=== PATIENT | female | born 1960 | race American Indian/Alaskan Native ===

== ENCOUNTER 2018-04-10 19:30 | Emergency (ER) | payer MEDICARE ==
[2018-04-10] MEDS ORDERED: NACL 0.9% 1000 ML 1,000 ML IV ONE (19:49)
[2018-04-10 20:04] LABS: Basophils # (Auto) 0.1 K/mm3 (0.0-0.1); Eosinophils # (Auto) 0.1 K/mm3 (0.0-0.4); Eosinophils % (Auto) 1.1 % (0.0-4.3); Hematocrit 37.8 % (30.3-42.9); Hemoglobin 13.6 gm/dl (10.1-14.3); Lymphocytes # (Auto) 1.6 K/mm3 (1.2-5.4); Lymphocytes % (Auto) 26.7 % (13.4-35.0); Mean Corpuscular HGB Conc 36 % (30-34); Mean Corpuscular Hemoglobin 35 pg (28-32); Mean Corpuscular Volume 96 fl (79-97); Monocytes # (Auto) 0.6 K/mm3 (0.0-0.8); Platelet Count 160 K/mm3 (140-440); Red Blood Count 3.93 M/mm3 (3.65-5.03); Red Cell Distribution Width 16.1 % (13.2-15.2)
[2018-04-10 20:20] LABS: Calcium 10.5 mg/dL (8.4-10.2)
--- NOTE | 2018-04-11 00:30 | Cat Scan Report ---
FINAL REPORT PROCEDURE: CT ABDOMEN PELVIS WO CON TECHNIQUE: Computerized axial tomography of the abdomen and pelvis was performed without intravenous contrast. This study is performed without intravascular contrast material and its sensitivity for abdominal and pelvic pathology, including neoplasms, inflammation, abscess, free fluid, thrombosis, arterial dissection and infarction, is reduced compared with a contrast enhanced study. HISTORY: right flank / abd pain COMPARISON: No prior studies are available for comparison. FINDINGS: Visualized lower thorax: No significant abnormality. Liver: Normal size and attenuation. There is an 8 millimeter cyst in the right lobe of the liver. Spleen: Normal size and attenuation. Gallbladder and biliary system: Normal. Pancreas: Normal. Adrenals: Normal. Kidneys: There are multiple bilateral kidney stones. There is a 7 millimeter stone like density in the right side of the pelvis which could be a nonobstructing distal right ureteral stone versus phlebolith. There is no hydronephrosis or hydroureter bilaterally. GI tract: There is no bowel obstruction, colitis or enteritis. The appendix is normal.. Lymph nodes and mesentery: Normal. Vasculature: Normal. Bladder: Normal. Reproductive organs: Normal. Peritoneum: There is no ascites, free air, abscess or adenopathy.. Musculoskeletal structures: No significant abnormality. Other: None. IMPRESSION: There are multiple bilateral kidney stones. There is a 7 millimeter stone like density in the right side of the pelvis which could be a nonobstructing distal right ureteral stone versus phlebolith. There is no hydronephrosis or hydroureter bilaterally. There is no bowel obstruction, colitis or enteritis. The appendix is normal.. There is no ascites, free air, abscess or adenopathy.. .
[2018-04-11 01:11] LABS: Bilirubin,Urine NEG (Negative); Blood,Urine NEG (Negative); Color,Urine Yellow (Yellow); Hyaline Casts,Urine 1 /LPF; Protein,Urine <15 mg/dL mg/dL (Negative)
--- NOTE | 2018-04-11 01:19 | Emergency Department Report ---
HPI - General Chief Complaint: Abdominal Pain Time Seen by Provider: 04/10/18 22:16 - HPI HPI: 57-year-old female presents to the emergency department with complaint of an aching pain to the right side of the abdomen and flank that has been going on since earlier this afternoon. She denies any fever, nausea, vomiting, diarrhea, dysuria, vaginal bleeding. She did not take anything for her symptoms prior to presentation. She has a history of hypertension and multiple sclerosis. Recent travel or sick contacts at home. Patient says that she has a primary care physician for follow-up. ED Past Medical Hx - Past Medical History Hx Hypertension: Yes Additional medical history: MS diagnosed 10 years ago. - Surgical History Past Surgical History?: No - Social History Smoking Status: Former Smoker Substance Use Type: None - Medications Home Medications: Home Medications Medication Instructions Recorded Confirmed Last Taken Type HYDROcodone/APAP 5-325 [[place] 1 each PO Q6HR PRN #10 tablet 04/11/18 Unknown Rx 5/325] Tamsulosin HCl [Flomax] 0.4 mg PO QDAY #5 cap.er.24h 04/11/18 Unknown Rx ED Review of Systems ROS: Stated complaint: RIGHT FLANK PAIN Other details as noted in HPI Comment: All other systems reviewed and negative Constitutional: denies: chills, fever Eyes: denies: eye pain, eye discharge, vision change ENT: denies: ear pain, throat pain Respiratory: denies: cough, shortness of breath, wheezing Cardiovascular: denies: chest pain, palpitations Gastrointestinal: abdominal pain. denies: nausea, vomiting, diarrhea Genitourinary: denies: dysuria, hematuria, discharge Musculoskeletal: denies: back pain, joint swelling, arthralgia Skin: denies: rash, lesions Neurological: denies: headache, weakness, paresthesias Physical Exam - Physical Exam Vital Signs: Vital Signs 04/10/18 04/10/18 19:46 23:42 Temperature 99.0 F 98.2 F Pulse Rate 58 L 56 L Respiratory 16 16 Rate Blood Pressure 130/91 Blood Pressure 103/76 [Left] O2 Sat by Pulse 97 97 Oximetry Physical Exam: GENERAL: The patient is well-developed well-nourished. HENT: Normocephalic. Atraumatic. Patient has moist mucous membranes. EYES: Extraocular motions are intact. Pupils equal reactive to light bilaterally. NECK: Supple. Trachea is midline. CHEST/LUNGS: Clear to auscultation. There is no respiratory distress noted. HEART/CARDIOVASCULAR: Regular. There is no tachycardia. There is no murmur. ABDOMEN: Abdomen is soft. Unable to reproduce right-sided abdominal and flank pain to palpation. No guarding. Patient has normal bowel sounds. There is no abdominal distention. SKIN: There is no rash. There is no edema. There is no diaphoresis. NEURO: The patient is awake, alert, and oriented. The patient is cooperative. The patient has no focal neurologic deficits. The patient has normal speech. MUSCULOSKELETAL: There is no tenderness or deformity. There is no evidence of acute injury. ED Course Vital Signs 04/10/18 04/10/18 19:46 23:42 Temperature 99.0 F 98.2 F Pulse Rate 58 L 56 L Respiratory 16 16 Rate Blood Pressure 130/91 Blood Pressure 103/76 [Left] O2 Sat by Pulse 97 97 Oximetry - Consultations Consultation #1: 04/11/18 02:35 I spoke with the line builder on-call, Dr. Baez, who listened to the patient' s presentation, labs and imaging, and agrees that the patient appears safe for discharge home from a nephrology standpoint with her renal insufficiency and most likely chronic kidney disease. They are happy to see the patient in their office in the next few days. ED Medical Decision Making - Lab Data Result diagrams: 04/10/18 19:51 04/10/18 19:51 - Radiology Data Radiology results: report reviewed PROCEDURE: CT ABDOMEN PELVIS WO CON TECHNIQUE: Computerized axial tomography of the abdomen and pelvis was performed without intravenous contrast. This study is performed without intravascular contrast material and its sensitivity for abdominal and pelvic pathology, including neoplasms, inflammation, abscess, free fluid, thrombosis, arterial dissection and infarction, is reduced compared with a contrast enhanced study. HISTORY: right flank / abd pain COMPARISON: No prior studies are available for comparison. FINDINGS: Visualized lower thorax: No significant abnormality. Liver: Normal size and attenuation. There is an 8 millimeter cyst in the right lobe of the liver. Spleen: Normal size and attenuation. Gallbladder and biliary system: Normal. Pancreas: Normal. Adrenals: Normal. Kidneys: There are multiple bilateral kidney stones. There is a 7 millimeter stone like density in the right side of the pelvis which could be a nonobstructing distal right ureteral stone versus phlebolith. There is no hydronephrosis or hydroureter bilaterally. GI tract: There is no bowel obstruction, colitis or enteritis. The appendix is normal.. Lymph nodes and mesentery: Normal. Vasculature: Normal. Bladder: Normal. Reproductive organs: Normal. Peritoneum: There is no ascites, free air, abscess or adenopathy.. Musculoskeletal structures: No significant abnormality. Other: None. IMPRESSION: There are multiple bilateral kidney stones. There is a 7 millimeter stone like density in the right side of the pelvis which could be a nonobstructing distal right ureteral stone versus phlebolith. There is no hydronephrosis or hydroureter bilaterally. There is no bowel obstruction, colitis or enteritis. The appendix is normal.. There is no ascites, free air, abscess or adenopathy.. . Transcribed By: CO Dictated By: KUSHAL SHAIKH MD Electronically Authenticated By: KUSHAL SHAIKH MD Signed Date/Time: 04/11/18 0028 - Medical Decision Making This patient presented with some right-sided abdominal and flank pain that started a few hours prior to presentation. No fever, nausea, vomiting, vaginal bleeding or discharge, dysuria. Patient's labs were also unremarkable except for renal insufficiency. She has a creatinine of 1.5 and a GFR of about 35. No signs of uremia. No electrolyte abnormalities. CT of the abdomen and pelvis without contrast was done that shows multiple intrarenal stones and either a right lower quadrant/pelvic phlebolith or 7 mm renal stone. Patient's urinalysis did not show any urinary tract infection or hematuria. Vital signs stable throughout her ED course. Spoke with nephrology who felt that the patient follow up outpatient regarding her renal sufficiency and it is most likely chronic kidney disease. Patient will be discharged home with nephrology and urology referrals and encouraged to see her primary care physician. She will return to the ER with any worsening of her symptoms or any acute distress. - Differential Diagnosis nephrolithiasis, cholelithiasis, cholecystitis, colitis, UTI Critical Care Time: No Critical care attestation.: If time is entered above; I have spent that time in minutes in the direct care of this critically ill patient, excluding procedure time. ED Disposition Clinical Impression: Right flank pain, Renal insufficiency, Kidney stones Disposition: DC-01 TO HOME OR SELFCARE Is pt being admited?: No Condition: Stable Instructions: Renal Colic (ED), Abdominal Pain (ED), Flank Pain (ED), Impaired Kidney Function (ED) Additional Instructions: Please follow-up with your primary care physician in the next few days. I have given you a referral for a local kidney doctor, Dr. Del Real, to follow up regarding your impaired kidney function. I have given you a referral for a local urologist, Dr. Laureano, to follow up regarding the kidney stones found. Return to the emergency department immediately with any worsening of her symptoms, development of fever, inability to urinate, or with any acute distress. You have been prescribed a medication that is sedating and therefore should not be taken prior to driving, working, and responsible for children and in no way should be mixed with alcohol of any quantity. Prescriptions: HYDROcodone/APAP 5-325 [[place] 5/325] 1 each PO Q6HR PRN #10 tablet PRN Reason: Pain Tamsulosin HCl [Flomax] 0.4 mg PO QDAY #5 cap.er.24h Referrals: NEDA DEL REAL MD [Staff Physician] - NICK FIDEL LAUREANO MD [Staff Physician] - [facility], [Primary Care Provider] - [facility] Time of Disposition: 01:39
[2018-04-11 02:15] VITALS: BP 144/92
== END 2018-04-11 03:22 | disposition home or self-care (01) ==
LOC: ED 19:30
DX: N28.9 Disorder of kidney and ureter, unspecified (principal); I10 Essential (primary) hypertension; Z87.891 Personal history of nicotine dependence
CPT/HCPCS: 36415; 74176; 80053; 81001; 85025

== ENCOUNTER 2018-05-05 10:20 | Inpatient (IN) | payer MEDICARE ==
[2018-05-05] MEDS ORDERED: NACL 0.9% 1000 ML 1,000 ML IV ONE (10:41)
--- NOTE | 2018-05-05 10:47 | Emergency Department Report ---
ED Neuro Deficit HPI - General Stated Complaint: (L) SIDE NUMBNESS Time Seen by Provider: 05/05/18 10:41 Source: patient, EMS Limitations: No Limitations - History of Present Illness Initial Comments: Mrs. Hawthorne is 57 years old female with history of multiple sclerosis, stroke 2 and hypertension. Patient is brought to the ER via EMS from home. Patient stated that she's been having numbness to her left upper and lower extremity including left face also. Patient stated that her symptoms started yesterday. Patient stated that this is different from her usual MS presentation. She denied any weakness, bladder or bowel incontinence. Patient also denied any headache, fever or neck pain. -: Last night Location: left face, left arm, left leg Presenting Symptoms: Present: Facial Droop/Numbness History of same: Yes Place: home Quality: numb - Related Data Home Medications: Previous Rx's Medication Instructions Recorded Last Taken Type HYDROcodone/APAP 5-325 [[place] 1 each PO Q6HR PRN #10 tablet 04/11/18 Unknown Rx 5/325] Tamsulosin HCl [Flomax] 0.4 mg PO QDAY #5 cap.er.24h 04/11/18 Unknown Rx Allergies/Adverse Reactions: Allergies Allergy/AdvReac Type Severity Reaction Status Date / Time No Known Allergies Allergy Verified 04/10/18 23:00 ED Review of Systems ROS: Stated complaint: (L) SIDE NUMBNESS Other details as noted in HPI Comment: All other systems reviewed and negative Constitutional: denies: chills, fever Respiratory: denies: cough, orthopnea, shortness of breath, SOB with exertion, SOB at rest, wheezing Cardiovascular: denies: chest pain, palpitations Gastrointestinal: denies: abdominal pain, nausea, vomiting, diarrhea, constipation, hematemesis, hematochezia Genitourinary: denies: urgency, dysuria, frequency, hematuria, discharge Musculoskeletal: denies: back pain Skin: denies: rash, lesions Neurological: numbness, paresthesias. denies: headache, weakness, confusion ED Past Medical Hx - Past Medical History Hx Hypertension: Yes Additional medical history: MS diagnosed 10 years ago. - Social History Smoking Status: Former Smoker Substance Use Type: None - Medications Home Medications: Home Medications Medication Instructions Recorded Confirmed Last Taken Type HYDROcodone/APAP 5-325 [[place] 1 each PO Q6HR PRN #10 tablet 04/11/18 Unknown Rx 5/325] Tamsulosin HCl [Flomax] 0.4 mg PO QDAY #5 cap.er.24h 04/11/18 Unknown Rx ED Neuro Physical Exam - General Limitations: No Limitations General appearance: alert, in no apparent distress Suspected Stroke: Yes - Head Head exam: Present: atraumatic, normocephalic, normal inspection - Eye Eye exam: Present: normal appearance, PERRL - ENT ENT exam: Present: normal exam, normal orophraynx, mucous membranes moist - Neck Neck exam: Present: normal inspection, full ROM. Absent: tenderness, meningismus, lymphadenopathy, thyromegaly - Respiratory Respiratory exam: Present: normal lung sounds bilaterally. Absent: respiratory distress, wheezes, rales, rhonchi, stridor, chest wall tenderness, accessory muscle use, decreased breath sounds, prolonged expiratory - Cardiovascular Cardiovascular Exam: Present: regular rate, normal rhythm, normal heart sounds - GI/Abdominal GI/Abdominal exam: Present: soft, normal bowel sounds. Absent: distended, tenderness, guarding, rebound, rigid, organomegaly, mass, bruit, pulsatile mass , hernia - Extremities Exam Extremities exam: Present: normal inspection, full ROM, normal capillary refill. Absent: tenderness, pedal edema, joint swelling - Back Exam Back exam: Present: normal inspection, full ROM. Absent: tenderness, CVA tenderness (R), CVA tenderness (L), muscle spasm, paraspinal tenderness, vertebral tenderness, rash noted - Neurological Exam Neurological exam: Present: alert, oriented X3, CN II-XII intact, normal gait, reflexes normal - NIHSS Assessment Interval: 24 hours post onset of symptoms +-20 minutes 1a. Level of Consciousness: alert/keenly responsive 1b. LOC Questions: answers both correctly 1c. LOC Commands: performs tasks correctly 2. Best Gaze: normal 3. Visual: no visual loss 4. Facial Palsy: normal symmetrical movement 5b. Motor Arm Right: no drift 5a. Motor Arm Left: no drift 6a. Motor Leg Left: no drift 6b. Motor Leg Right: no drift 7. Limb Ataxia: absent 8. Sensory: mild/moderate sensory loss 9. Best Language: no aphasia 10. Dysarthria: normal 11. Extinction/Inattention: no abnormality Total Score: 1 Stroke Severity: Minor Stroke - Psychiatric Psychiatric exam: Present: normal affect, normal mood - Skin Skin exam: Present: warm, intact, normal color ED Course Vital Signs 05/05/18 05/05/18 10:38 10:49 Temperature 98.1 F Pulse Rate 66 Respiratory 13 13 Rate Blood Pressure 106/73 Blood Pressure 106/73 [Left] O2 Sat by Pulse 100 Oximetry - Lab Data Result diagrams: 05/05/18 11:34 05/05/18 11:34 Lab Results 05/05/18 05/05/18 05/05/18 Range/Units 10:55 11:34 11:34 WBC 5.5 (4.5-11.0) K/mm3 RBC 3.63 L (3.65-5.03) M/mm3 Hgb 11.9 (10.1-14.3) gm/dl Hct 35.5 (30.3-42.9) % MCV 98 H (79-97) fl MCH 33 H (28-32) pg MCHC 34 (30-34) % RDW 15.7 H (13.2-15.2) % Plt Count 149 (140-440) K/mm3 Lymph % (Auto) 24.4 (13.4-35.0) % [place] % (Auto) 10.1 H (0.0-7.3) % Eos % (Auto) 1.6 (0.0-4.3) % Baso % (Auto) 0.5 (0.0-1.8) % Lymph # 1.3 (1.2-5.4) K/mm3 Moffat # 0.6 (0.0-0.8) K/mm3 Eos # 0.1 (0.0-0.4) K/mm3 Baso # 0.0 (0.0-0.1) K/mm3 Seg Neutrophils % 63.4 (40.0-70.0) % Seg Neutrophils # 3.5 (1.8-7.7) K/mm3 PT 14.1 (12.2-14.9) Sec. INR 1.04 (0.87-1.13) APTT 33.6 (24.2-36.6) Sec. Thrombin Time 16.8 (15.1-19.6) Sec. Sodium (137-145) mmol/L Potassium (3.6-5.0) mmol/L Chloride (98-107) mmol/L Carbon Dioxide (22-30) mmol/L Anion Gap mmol/L BUN (7-17) mg/dL Creatinine (0.7-1.2) mg/dL Estimated GFR ml/min BUN/Creatinine Ratio % Glucose (65-100) mg/dL POC Glucose 142 H (70-105) Calcium (8.4-10.2) mg/dL Total Bilirubin (0.1-1.2) mg/dL Direct Bilirubin (0-0.2) mg/dL Indirect Bilirubin mg/dL AST (5-40) units/L ALT (7-56) units/L Alkaline Phosphatase (35-129) units/L Total Creatine Kinase (30-135) units/L CK-MB (CK-2) (0.0-4.0) ng/mL CK-MB (CK-2) Rel Index (0-4) Troponin T (0.00-0.029) ng/mL Total Protein (6.3-8.2) g/dL Albumin (3.9-5) g/dL Albumin/Globulin Ratio % 05/05/18 05/05/18 Range/Units 11:34 11:34 WBC (4.5-11.0) K/mm3 RBC (3.65-5.03) M/mm3 Hgb (10.1-14.3) gm/dl Hct (30.3-42.9) % MCV (79-97) fl MCH (28-32) pg MCHC (30-34) % RDW (13.2-15.2) % Plt Count (140-440) K/mm3 Lymph % (Auto) (13.4-35.0) % [place] % (Auto) (0.0-7.3) % Eos % (Auto) (0.0-4.3) % Baso % (Auto) (0.0-1.8) % Lymph # (1.2-5.4) K/mm3 [place] # (0.0-0.8) K/mm3 Eos # (0.0-0.4) K/mm3 Baso # (0.0-0.1) K/mm3 Seg Neutrophils % (40.0-70.0) % Seg Neutrophils # (1.8-7.7) K/mm3 PT (12.2-14.9) Sec. INR (0.87-1.13) APTT (24.2-36.6) Sec. Thrombin Time (15.1-19.6) Sec. Sodium 141 (137-145) mmol/L Potassium 3.7 (3.6-5.0) mmol/L Chloride 104.3 (98-107) mmol/L Carbon Dioxide 27 (22-30) mmol/L Anion Gap 13 mmol/L BUN 15 (7-17) mg/dL Creatinine 1.4 H (0.7-1.2) mg/dL Estimated GFR 47 ml/min BUN/Creatinine Ratio 11 % Glucose 123 H (65-100) mg/dL POC Glucose (70-105) Calcium 9.0 (8.4-10.2) mg/dL Total Bilirubin 0.30 (0.1-1.2) mg/dL Direct Bilirubin < 0.2 (0-0.2) mg/dL Indirect Bilirubin 0.1 mg/dL AST 25 (5-40) units/L ALT 22 (7-56) units/L Alkaline Phosphatase 58 (35-129) units/L Total Creatine Kinase 111 (30-135) units/L CK-MB (CK-2) < 1.0 (0.0-4.0) ng/mL CK-MB (CK-2) Rel Index 0.9 (0-4) Troponin T < 0.010 (0.00-0.029) ng/mL Total Protein 6.9 (6.3-8.2) g/dL Albumin 3.6 L (3.9-5) g/dL Albumin/Globulin Ratio 1.1 % - EKG Data -: EKG Interpreted by Sd EKG shows normal: sinus rhythm Rate: bradycardia Interpretation: no acute changes - Radiology Data Radiology results: report reviewed Referring Physician: ROYAL RICCI Patient Name: TRICE HAWTHORNE Date of : 1960 Sex: Female Report Date: 2018-05-05 Report Status: Finalized Findings [facility] [address] [place] [address] Cat Scan Report Signed Patient: TRICE HAWTHORNE MR#: [id number] : 1960 Acct:[id number] Age/Sex: 57 / F ADM Date: 05/05/18 Loc: ED Attending Dr: Ordering Physician: ROYAL RICCI Date of Service: 05/05/18 Procedure(s): CT head/brain wo con Accession Number(s): [id number] cc: ROYAL RICCI FINAL REPORT EXAM: CT HEAD/BRAIN WO CON HISTORY: Stroke symptoms TECHNIQUE: CT of the head was performed without intravenous contrast. PRIORS: None. FINDINGS: The ventricles are normal in shape and position. The ventricles are nondilated. No intracranial hemorrhage, mass, mass effect, midline shift or evidence of acute ischemic infarct. The basilar cisterns are patent. Moderate to severe areas of low-attenuation are seen in the periventricular and subcortical white matter. There is diffuse cerebral volume loss. Probable old bilateral basal ganglia lacunar infarcts are seen. The paranasal sinuses are clear. The extracranial soft tissues demonstrate no abnormality. The calvarium is intact. The orbits are intact. The mastoid air cells are clear. IMPRESSION: 1. No definite acute intracranial abnormality. 2. Severe white matter changes which are nonspecific in a patient this age although may be related to chronic microvascular ischemic disease versus a demyelinating or inflammatory process. 3. Probable old bilateral basal ganglia lacunar infarcts. Transcribed By: MG Dictated By: DANNA SCHMIDT MD Electronically Authenticated By: DANNA SCHMIDT MD Signed Date/Time: 05/05/18 1154 DD/ 1154 TD/TT: 05/05/18 1154 - Medical Decision Making I discussed the patient is Dr. Hartman, he agreed to admit the patient to his service. Critical Care Time: Yes Critical care time in (mins) excluding proc time.: 30 Critical care attestation.: If time is entered above; I have spent that time in minutes in the direct care of this critically ill patient, excluding procedure time. ED Disposition Clinical Impression: Stroke, Numbness Disposition: OP ADMIT IP TO THIS HOSP Is pt being admited?: Yes Condition: Stable
--- NOTE | 2018-05-05 11:55 | Cat Scan Report ---
FINAL REPORT EXAM: CT HEAD/BRAIN WO CON HISTORY: Stroke symptoms TECHNIQUE: CT of the head was performed without intravenous contrast. PRIORS: None. FINDINGS: The ventricles are normal in shape and position. The ventricles are nondilated. No intracranial hemorrhage, mass, mass effect, midline shift or evidence of acute ischemic infarct. The basilar cisterns are patent. Moderate to severe areas of low-attenuation are seen in the periventricular and subcortical white matter. There is diffuse cerebral volume loss. Probable old bilateral basal ganglia lacunar infarcts are seen. The paranasal sinuses are clear. The extracranial soft tissues demonstrate no abnormality. The calvarium is intact. The orbits are intact. The mastoid air cells are clear. IMPRESSION: 1. No definite acute intracranial abnormality. 2. Severe white matter changes which are nonspecific in a patient this age although may be related to chronic microvascular ischemic disease versus a demyelinating or inflammatory process. 3. Probable old bilateral basal ganglia lacunar infarcts.
[2018-05-05 12:02] LABS: Basophils % (Auto) 0.5 % (0.0-1.8); Eosinophils # (Auto) 0.1 K/mm3 (0.0-0.4); Eosinophils % (Auto) 1.6 % (0.0-4.3); Hematocrit 35.5 % (30.3-42.9); Hemoglobin 11.9 gm/dl (10.1-14.3); Lymphocytes # (Auto) 1.3 K/mm3 (1.2-5.4); Lymphocytes % (Auto) 24.4 % (13.4-35.0); Mean Corpuscular HGB Conc 34 % (30-34); Mean Corpuscular Hemoglobin 33 pg (28-32); Mean Corpuscular Volume 98 fl (79-97); Monocytes # (Auto) 0.6 K/mm3 (0.0-0.8); Monocytes % (Auto) 10.1 % (0.0-7.3); Platelet Count 149 K/mm3 (140-440); Red Blood Count 3.63 M/mm3 (3.65-5.03); Red Cell Distribution Width 15.7 % (13.2-15.2)
[2018-05-05 12:03] LABS: Alanine Aminotransferase 22 units/L (7-56); Albumin 3.6 g/dL (3.9-5); BUN/Creatinine Ratio 11; Blood Urea Nitrogen 15 mg/dL (7-17); Hemolysis Index 7
[2018-05-05 12:06] LABS: Bilirubin,Direct < 0.2 mg/dL (0-0.2); Creatine Kinase MB < 1.0 ng/mL (0.0-4.0)
[2018-05-05 12:12] LABS: INR 1.04 (0.87-1.13); Thrombin Time 16.8 Sec. (15.1-19.6)
[2018-05-05 12:13] LABS: Partial Thromboplastin Time 33.6 Sec. (24.2-36.6)
--- NOTE | 2018-05-05 15:32 | History and Physical Report ---
History of Present Illness Date of examination: 05/05/18 Date of admission: 05/05/18 13:49 Chief complaint: CC L side numbness since yesterday History of present illness: History of Present Illness: 57 y/o female with hx of Multiple slerosis strokex2 and HTN comes in for numbness of L side of face and LUE.since yesterday.No focal weakness.Able to walk.No seizures or altered sensorium.No diplopia or nasal regurgitation of fluids.No exacerbating or relieving factors.Patient also has numbness of LLE. Past Medical History Hx Hypertension: Yes Additional medical history: MS diagnosed 10 years ago. Surgical History n/a Social History Smoking Status: Former Smoker Substance Use Type: None Family history HTN Medications Home Medications: Home Medications Medication Instructions Recorded Confirmed Last Taken Type HYDROcodone/APAP 5-325 [[place] 1 each PO Q6HR PRN #10 tablet 04/11/18 Unknown Rx 5/325] Tamsulosin HCl [Flomax] 0.4 mg PO QDAY #5 cap.er.24h 04/11/18 Unknown Rx Review of Systems ROS: Stated complaint: (L) SIDE NUMBNESS Other details as noted in HPI Comment: All other systems reviewed and negative Constitutional: denies: chills, fever Respiratory: denies: cough, orthopnea, shortness of breath, SOB with exertion, SOB at rest, wheezing Cardiovascular: denies: chest pain, palpitations Gastrointestinal: denies: abdominal pain, nausea, vomiting, diarrhea, constipation, hematemesis, hematochezia Genitourinary: denies: urgency, dysuria, frequency, hematuria, discharge Musculoskeletal: denies: back pain Skin: denies: rash, lesions Neurological: numbness, paresthesias. denies: headache, weakness, confusion 14 point review of systems done-other rucker negative. Medications and Allergies Allergies Allergy/AdvReac Type Severity Reaction Status Date / Time No Known Allergies Allergy Verified 04/10/18 23:00 Home Medications Medication Instructions Recorded Confirmed Last Taken Type HYDROcodone/APAP 5-325 [[place] 1 each PO Q6HR PRN #10 tablet 04/11/18 05/05/18 Unknown Rx 5/325] Tamsulosin HCl [Flomax] 0.4 mg PO QDAY #5 cap.er.24h 04/11/18 05/05/18 Unknown Rx Exam - Constitutional Vitals: Temp Pulse Resp BP Pulse Ox 98.1 F 66 13 106/73 100 05/05/18 10:38 05/05/18 10:38 05/05/18 10:49 05/05/18 10:38 05/05/18 10:38 General appearance: Present: no acute distress, well-nourished - EENT Eyes: Present: PERRL ENT: hearing intact, clear oral mucosa - Neck Neck: Present: supple, normal ROM - Respiratory Respiratory effort: normal Respiratory: bilateral: CTA - Cardiovascular Heart rate: 78 Rhythm: regular Heart Sounds: Present: S1 & S2. Absent: rub, click - Extremities Extremities: no ischemia, pulses intact, pulses symmetrical, No edema Peripheral Pulses: within normal limits - Abdominal General gastrointestinal: Present: soft, non-tender, non-distended, normal bowel sounds Female genitourinary: Present: normal - Rectal Rectal Exam: deferred - Integumentary Integumentary: Present: clear, warm, dry - Musculoskeletal Musculoskeletal: gait normal, strength equal bilaterally - Psychiatric Psychiatric: appropriate mood/affect, intact judgment & insight - Neurologic Neurologic: CNII-XII intact, moves all extremities, gait normal, other ( Decreased touch and pain on L side) Results - Labs CBC & Chem 7: 05/05/18 11:34 05/05/18 11:34 Labs: Laboratory Last Values WBC 5.5 K/mm3 (4.5-11.0) 05/05/18 11:34 RBC 3.63 M/mm3 (3.65-5.03) L 05/05/18 11:34 Hgb 11.9 gm/dl (10.1-14.3) 05/05/18 11:34 Hct 35.5 % (30.3-42.9) 05/05/18 11:34 MCV 98 fl (79-97) H 05/05/18 11:34 MCH 33 pg (28-32) H 05/05/18 11:34 MCHC 34 % (30-34) 05/05/18 11:34 RDW 15.7 % (13.2-15.2) H 05/05/18 11:34 Plt Count 149 K/mm3 (140-440) 05/05/18 11:34 Lymph % (Auto) 24.4 % (13.4-35.0) 05/05/18 11:34 [place] % (Auto) 10.1 % (0.0-7.3) H 05/05/18 11:34 Eos % (Auto) 1.6 % (0.0-4.3) 05/05/18 11:34 Baso % (Auto) 0.5 % (0.0-1.8) 05/05/18 11:34 Lymph # 1.3 K/mm3 (1.2-5.4) 05/05/18 11:34 [place] # 0.6 K/mm3 (0.0-0.8) 05/05/18 11:34 Eos # 0.1 K/mm3 (0.0-0.4) 05/05/18 11:34 Baso # 0.0 K/mm3 (0.0-0.1) 05/05/18 11:34 Seg Neutrophils % 63.4 % (40.0-70.0) 05/05/18 11:34 Seg Neutrophils # 3.5 K/mm3 (1.8-7.7) 05/05/18 11:34 PT 14.1 Sec. (12.2-14.9) 05/05/18 11:34 INR 1.04 (0.87-1.13) 05/05/18 11:34 APTT 33.6 Sec. (24.2-36.6) 05/05/18 11:34 Thrombin Time 16.8 Sec. (15.1-19.6) 05/05/18 11:34 Sodium 141 mmol/L (137-145) 05/05/18 11:34 Potassium 3.7 mmol/L (3.6-5.0) 05/05/18 11:34 Chloride 104.3 mmol/L (98-107) 05/05/18 11:34 Carbon Dioxide 27 mmol/L (22-30) 05/05/18 11:34 Anion Gap 13 mmol/L 05/05/18 11:34 BUN 15 mg/dL (7-17) 05/05/18 11:34 Creatinine 1.4 mg/dL (0.7-1.2) H 05/05/18 11:34 Estimated GFR 47 ml/min 05/05/18 11:34 BUN/Creatinine Ratio 11 % 05/05/18 11:34 Glucose 123 mg/dL (65-100) H 05/05/18 11:34 POC Glucose 142 (70-105) H 05/05/18 10:55 Calcium 9.0 mg/dL (8.4-10.2) 05/05/18 11:34 Total Bilirubin 0.30 mg/dL (0.1-1.2) 05/05/18 11:34 Direct Bilirubin < 0.2 mg/dL (0-0.2) 05/05/18 11:34 Indirect Bilirubin 0.1 mg/dL 05/05/18 11:34 AST 25 units/L (5-40) 05/05/18 11:34 ALT 22 units/L (7-56) 05/05/18 11:34 Alkaline Phosphatase 58 units/L (35-129) 05/05/18 11:34 Total Creatine Kinase 111 units/L (30-135) 05/05/18 11:34 CK-MB (CK-2) < 1.0 ng/mL (0.0-4.0) 05/05/18 11:34 CK-MB (CK-2) Rel Index 0.9 (0-4) 05/05/18 11:34 Troponin T < 0.010 ng/mL (0.00-0.029) 05/05/18 11:34 Total Protein 6.9 g/dL (6.3-8.2) 05/05/18 11:34 Albumin 3.6 g/dL (3.9-5) L 05/05/18 11:34 Albumin/Globulin Ratio 1.1 % 05/05/18 11:34 Short CBC 05/05/18 Range/Units 11:34 WBC 5.5 (4.5-11.0) K/mm3 Hgb 11.9 (10.1-14.3) gm/dl Hct 35.5 (30.3-42.9) % Plt Count 149 (140-440) K/mm3 BMP 05/05/18 11:34 Sodium 141 Potassium 3.7 Chloride 104.3 Carbon Dioxide 27 BUN 15 Creatinine 1.4 H Glucose 123 H Calcium 9.0 Cardiac Enzymes 05/05/18 Range/Units 11:34 Total Creatine Kinase 111 (30-135) units/L CK-MB (CK-2) < 1.0 (0.0-4.0) ng/mL Troponin T < 0.010 (0.00-0.029) ng/mL Liver Function 05/05/18 Range/Units 11:34 Total Bilirubin 0.30 (0.1-1.2) mg/dL Direct Bilirubin < 0.2 (0-0.2) mg/dL AST 25 (5-40) units/L ALT 22 (7-56) units/L Alkaline Phosphatase 58 (35-129) units/L Albumin 3.6 L (3.9-5) g/dL - Imaging and Cardiology EKG: report reviewed Imaging and Cardiology: CT Head IMPRESSION: 1. No definite acute intracranial abnormality. 2. Severe white matter changes which are nonspecific in a patient this age although may be related to chronic microvascular ischemic disease versus a demyelinating or inflammatory process. 3. Probable old bilateral basal ganglia lacunar infarcts. Assessment and Plan Advance Directives: Yes (Full code) VTE prophylaxis?: Chemical Plan of care discussed with patient/family: Yes - Patient Problems (1) Acute CVA (cerebrovascular accident) Current Visit: Yes Status: Acute Plan to address problem: Acute CVA versus MS flare up Stroke w/u initiated Neuro consult requested (2) Multiple sclerosis exacerbation Current Visit: Yes Status: Acute Plan to address problem: Possible Solumedrol 1 gm given will defer to Neuro reg continuation (3) HTN (hypertension) Current Visit: Yes Status: Chronic Qualifiers: Hypertension type: essential hypertension Qualified Code(s): I10 - Essential (primary) hypertension Plan to address problem: By history.not on any BP meds Will start if necessary (4) OAB (overactive bladder) Current Visit: Yes Status: Chronic Plan to address problem: Flomax for Bladder obstruction in females (5) DVT prophylaxis Current Visit: Yes Status: Acute Plan to address problem: OnLovenox GI prophylaxis initiated
[2018-05-06] MEDS ORDERED: MORPHINE IV PRN (06:19)
[2018-05-06] MEDS ORDERED: SODIUM CHLORIDE FLUSH SYRINGE 10 ML IV PRN ×2 (06:19→06:25)
[2018-05-06] MEDS ORDERED: TYLENOL PO PRN (06:19)
[2018-05-06] MEDS ORDERED: ZOFRAN IV PRN (06:19)
[2018-05-06] MEDS ORDERED: PERCOCET 5/325 PO PRN (06:19)
[2018-05-06] MEDS: SODIUM CHLORIDE FLUSH SYRINGE 10 ML IV SCH ×2 (09:08→22:17)
[2018-05-06] MEDS: PEPCID PO SCH ×2 (09:08→22:05)
[2018-05-06] MEDS: FLOMAX PO SCH (09:08)
[2018-05-06] MEDS ORDERED: SOLU-Medrol IV SCH (10:29)
--- NOTE | 2018-05-06 15:00 | Progress Note ---
Assessment and Plan Assessment and plan: 57 y/o female with hx of Multiple slerosis strokex2 and HTN for facial and left hand numbness - subacute cva aspirin, statin, neuro input appreciate Multiple sclerosis exacerbation continue steroids fup MR brain and spine with contrast -was diagnosed in [facility] 10 years ago, and details are unclear PRe htn -BP is ok, no meds needed OAB (overactive bladder) on Flomax for Bladder obstruction in females DVT prophylaxis SCDs History Interval history: c/o perioral numbness, and numbness of left index finger Hospitalist Physical - Constitutional Vitals: Temp Pulse Resp BP Pulse Ox 98.3 F 73 18 114/76 97 05/06/18 07:35 05/06/18 07:35 05/06/18 07:35 05/06/18 07:35 05/06/18 07:35 General appearance: Present: no acute distress, well-nourished - EENT Eyes: Present: PERRL ENT: hearing intact - Neck Neck: Present: supple - Respiratory Respiratory effort: normal Respiratory: bilateral: CTA - Cardiovascular Rhythm: regular Heart Sounds: Present: S1 & S2 - Extremities Extremities: no ischemia Peripheral Pulses: within normal limits - Abdominal General gastrointestinal: soft, non-tender - Integumentary Integumentary: Present: clear, warm, dry - Psychiatric Psychiatric: appropriate mood/affect, intact judgment & insight - Neurologic Neurologic: CNII-XII intact, other (babinsky sign on left) Results - Labs CBC & Chem 7: 05/07/18 06:12 05/07/18 06:12 Labs: Laboratory Last Values WBC 5.5 K/mm3 (4.5-11.0) 05/05/18 11:34 RBC 3.63 M/mm3 (3.65-5.03) L 05/05/18 11:34 Hgb 11.9 gm/dl (10.1-14.3) 05/05/18 11:34 Hct 35.5 % (30.3-42.9) 05/05/18 11:34 MCV 98 fl (79-97) H 05/05/18 11:34 MCH 33 pg (28-32) H 05/05/18 11:34 MCHC 34 % (30-34) 05/05/18 11:34 RDW 15.7 % (13.2-15.2) H 05/05/18 11:34 Plt Count 149 K/mm3 (140-440) 05/05/18 11:34 Lymph % (Auto) 24.4 % (13.4-35.0) 05/05/18 11:34 [place] % (Auto) 10.1 % (0.0-7.3) H 05/05/18 11:34 Eos % (Auto) 1.6 % (0.0-4.3) 05/05/18 11:34 Baso % (Auto) 0.5 % (0.0-1.8) 05/05/18 11:34 Lymph # 1.3 K/mm3 (1.2-5.4) 05/05/18 11:34 [place] # 0.6 K/mm3 (0.0-0.8) 05/05/18 11:34 Eos # 0.1 K/mm3 (0.0-0.4) 05/05/18 11:34 Baso # 0.0 K/mm3 (0.0-0.1) 05/05/18 11:34 Seg Neutrophils % 63.4 % (40.0-70.0) 05/05/18 11:34 Seg Neutrophils # 3.5 K/mm3 (1.8-7.7) 05/05/18 11:34 PT 14.1 Sec. (12.2-14.9) 05/05/18 11:34 INR 1.04 (0.87-1.13) 05/05/18 11:34 APTT 33.6 Sec. (24.2-36.6) 05/05/18 11:34 Thrombin Time 16.8 Sec. (15.1-19.6) 05/05/18 11:34 Sodium 141 mmol/L (137-145) 05/05/18 11:34 Potassium 3.7 mmol/L (3.6-5.0) 05/05/18 11:34 Chloride 104.3 mmol/L (98-107) 05/05/18 11:34 Carbon Dioxide 27 mmol/L (22-30) 05/05/18 11:34 Anion Gap 13 mmol/L 05/05/18 11:34 BUN 15 mg/dL (7-17) 05/05/18 11:34 Creatinine 1.4 mg/dL (0.7-1.2) H 05/05/18 11:34 Estimated GFR 47 ml/min 05/05/18 11:34 BUN/Creatinine Ratio 11 % 05/05/18 11:34 Glucose 123 mg/dL (65-100) H 05/05/18 11:34 POC Glucose 142 (70-105) H 05/05/18 10:55 Hemoglobin A1c 6.7 % (4-6) H 05/06/18 06:39 Calcium 9.0 mg/dL (8.4-10.2) 05/05/18 11:34 Total Bilirubin 0.30 mg/dL (0.1-1.2) 05/05/18 11:34 Direct Bilirubin < 0.2 mg/dL (0-0.2) 05/05/18 11:34 Indirect Bilirubin 0.1 mg/dL 05/05/18 11:34 AST 25 units/L (5-40) 05/05/18 11:34 ALT 22 units/L (7-56) 05/05/18 11:34 Alkaline Phosphatase 58 units/L (35-129) 05/05/18 11:34 Total Creatine Kinase 111 units/L (30-135) 05/05/18 11:34 CK-MB (CK-2) < 1.0 ng/mL (0.0-4.0) 05/05/18 11:34 CK-MB (CK-2) Rel Index 0.9 (0-4) 05/05/18 11:34 Troponin T < 0.010 ng/mL (0.00-0.029) 05/05/18 11:34 Total Protein 6.9 g/dL (6.3-8.2) 05/05/18 11:34 Albumin 3.6 g/dL (3.9-5) L 05/05/18 11:34 Albumin/Globulin Ratio 1.1 % 05/05/18 11:34
--- NOTE | 2018-05-06 15:12 | Magnetic Resonance Report ---
MRI OF THE BRAIN WITHOUT CONTRAST: HISTORY: Stroke PROCEDURE: Multiplanar, multisequence MR imaging of the brain without IV contrast was performed. FINDINGS: A 5 mm focus of weak diffusion restriction is identified in the right posterior lateral thalamus. There is also suggestion of a tiny 4 mm focus of diffusion restriction in the posterior right temporal lobe. Both of these lesions are seen on diffusion image 19. Moderate volume loss and nonspecific chronic white matter changes are identified for this persons age. No evidence for hemorrhage, mass or chronic infarct. No extra-axial fluid collection. The midline structures are central. The basal cisterns are patent. Normal ventricular size. The orbital cavities and sella turcica demonstrate no abnormality. The visualized paranasal sinuses and mastoid air cells are well aerated. IMPRESSION: Advanced volume loss and chronic white matter changes. 2 foci of subacute ischemia are suspected in the posterolateral right thalamus and subcortical white matter in the right posterior temporal lobe.
--- NOTE | 2018-05-06 15:13 | Magnetic Resonance Report ---
MRA HEAD WITHOUT CONTRAST HISTORY: Stroke. [id number] imaging with MIP reformations of the [place] of [place] is submitted. The arteries appear widely patent and free of hemodynamically significant stenosis, aneurysm or dissection. IMPRESSION: Unremarkable MRA head.
[2018-05-06] MEDS: NACL 0.9% 1000 ML 1,000 ML IV SCH (15:50)
[2018-05-06] MEDS: SOLU-Medrol 1,000 MG in NACL 0.9% 250ML 250 ML IV SCH (15:50)
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
[2018-05-07 06:32] LABS: Basophils % (Auto) 0.5 % (0.0-1.8); Hematocrit 37.4 % (30.3-42.9); Hemoglobin 12.9 gm/dl (10.1-14.3); Lymphocytes # (Auto) 0.7 K/mm3 (1.2-5.4); Lymphocytes % (Auto) 12.6 % (13.4-35.0); Mean Corpuscular HGB Conc 34 % (30-34); Mean Corpuscular Hemoglobin 34 pg (28-32); Mean Corpuscular Volume 97 fl (79-97); Monocytes % (Auto) 0.6 % (0.0-7.3); Platelet Count 152 K/mm3 (140-440); Red Blood Count 3.84 M/mm3 (3.65-5.03); Red Cell Distribution Width 15.5 % (13.2-15.2)
[2018-05-07 06:51] LABS: Albumin 3.8 g/dL (3.9-5); Calcium 8.8 mg/dL (8.4-10.2); Chol/HDL Ratio 3.01 %
[2018-05-07] MEDS: ZESTRIL PO SCH (10:37)
[2018-05-07] MEDS: FLOMAX PO SCH (10:37)
[2018-05-07] MEDS: PEPCID PO SCH ×2 (10:37→22:17)
[2018-05-07] MEDS: HCTZ PO SCH (10:39)
[2018-05-07] MEDS: NORVASC PO SCH (10:40)
[2018-05-07] MEDS: COREG PO SCH ×2 (10:41→22:17)
[2018-05-07] MEDS: SODIUM CHLORIDE FLUSH SYRINGE 10 ML IV SCH ×2 (10:43→22:18)
[2018-05-07] MEDS: SOLU-Medrol 1,000 MG in NACL 0.9% 250ML 250 ML IV SCH (10:43)
[2018-05-07] MEDS: HALFPRIN EC PO SCH (18:42)
[2018-05-07] MEDS: NEURONTIN PO SCH (18:43)
--- NOTE | 2018-05-07 23:41 | Progress Note ---
Assessment and Plan Assessment and plan: 57 y/o female with hx of Multiple slerosis strokex2 and HTN for facial and left hand numbness - subacute cva confirmed on non contrast MRI aspirin, statin, neuro input appreciate Multiple sclerosis exacerbation continue steroids fup MR brain and spine with contrast -was diagnosed in [facility] 10 years ago, and details are unclear PRe htn -BP is ok, no meds needed OAB (overactive bladder) on Flomax for Bladder obstruction in females DVT prophylaxis SCDs History Interval history: c/o perioral numbness, and numbness of left index finger Hospitalist Physical - Physical exam Narrative exam: General appearance: Present: no acute distress, well-nourished - EENT Eyes: Present: PERRL ENT: hearing intact - Neck Neck: Present: supple - Respiratory Respiratory effort: normal Respiratory: bilateral: CTA - Cardiovascular Rhythm: regular Heart Sounds: Present: S1 & S2 - Extremities Extremities: no ischemia Peripheral Pulses: within normal limits - Abdominal General gastrointestinal: soft, non-tender - Integumentary Integumentary: Present: clear, warm, dry - Psychiatric Psychiatric: appropriate mood/affect, intact judgment & insight - Neurologic Neurologic: CNII-XII intact, other (babinsky sign on left) - Constitutional Vitals: Temp Pulse Resp BP Pulse Ox 97.8 F 66 18 113/73 97 05/07/18 19:45 05/07/18 22:17 05/07/18 19:45 05/07/18 22:17 05/07/18 19:45 General appearance: Present: no acute distress, well-nourished Results - Labs CBC & Chem 7: 05/07/18 06:12 05/07/18 06:12 Labs: Laboratory Last Values WBC 5.4 K/mm3 (4.5-11.0) 05/07/18 06:12 RBC 3.84 M/mm3 (3.65-5.03) 05/07/18 06:12 Hgb 12.9 gm/dl (10.1-14.3) 05/07/18 06:12 Hct 37.4 % (30.3-42.9) 05/07/18 06:12 MCV 97 fl (79-97) 05/07/18 06:12 MCH 34 pg (28-32) H 05/07/18 06:12 MCHC 34 % (30-34) 05/07/18 06:12 RDW 15.5 % (13.2-15.2) H 05/07/18 06:12 Plt Count 152 K/mm3 (140-440) 05/07/18 06:12 Lymph % (Auto) 12.6 % (13.4-35.0) L 05/07/18 06:12 [place] % (Auto) 0.6 % (0.0-7.3) 05/07/18 06:12 Eos % (Auto) 0.0 % (0.0-4.3) 05/07/18 06:12 Baso % (Auto) 0.5 % (0.0-1.8) 05/07/18 06:12 Lymph # 0.7 K/mm3 (1.2-5.4) L 05/07/18 06:12 [place] # 0.0 K/mm3 (0.0-0.8) 05/07/18 06:12 Eos # 0.0 K/mm3 (0.0-0.4) 05/07/18 06:12 Baso # 0.0 K/mm3 (0.0-0.1) 05/07/18 06:12 Seg Neutrophils % 86.3 % (40.0-70.0) H 05/07/18 06:12 Seg Neutrophils # 4.7 K/mm3 (1.8-7.7) 05/07/18 06:12 PT 14.1 Sec. (12.2-14.9) 05/05/18 11:34 INR 1.04 (0.87-1.13) 05/05/18 11:34 APTT 33.6 Sec. (24.2-36.6) 05/05/18 11:34 Thrombin Time 16.8 Sec. (15.1-19.6) 05/05/18 11:34 Sodium 141 mmol/L (137-145) 05/07/18 06:12 Potassium 4.1 mmol/L (3.6-5.0) 05/07/18 06:12 Chloride 107.0 mmol/L (98-107) 05/07/18 06:12 Carbon Dioxide 22 mmol/L (22-30) 05/07/18 06:12 Anion Gap 16 mmol/L 05/07/18 06:12 BUN 18 mg/dL (7-17) H 05/07/18 06:12 Creatinine 1.2 mg/dL (0.7-1.2) 05/07/18 06:12 Estimated GFR 56 ml/min 05/07/18 06:12 BUN/Creatinine Ratio 15 % 05/07/18 06:12 Glucose 165 mg/dL (65-100) H 05/07/18 06:12 POC Glucose 142 (70-105) H 05/05/18 10:55 Hemoglobin A1c 6.7 % (4-6) H 05/06/18 06:39 Calcium 8.8 mg/dL (8.4-10.2) 05/07/18 06:12 Total Bilirubin 0.50 mg/dL (0.1-1.2) 05/07/18 06:12 Direct Bilirubin < 0.2 mg/dL (0-0.2) 05/05/18 11:34 Indirect Bilirubin 0.1 mg/dL 05/05/18 11:34 AST 22 units/L (5-40) 05/07/18 06:12 ALT 22 units/L (7-56) 05/07/18 06:12 Alkaline Phosphatase 58 units/L (35-129) 05/07/18 06:12 Total Creatine Kinase 111 units/L (30-135) 05/05/18 11:34 CK-MB (CK-2) < 1.0 ng/mL (0.0-4.0) 05/05/18 11:34 CK-MB (CK-2) Rel Index 0.9 (0-4) 05/05/18 11:34 Troponin T < 0.010 ng/mL (0.00-0.029) 05/05/18 11:34 Total Protein 7.3 g/dL (6.3-8.2) 05/07/18 06:12 Albumin 3.8 g/dL (3.9-5) L 05/07/18 06:12 Albumin/Globulin Ratio 1.1 % 05/07/18 06:12 Triglycerides 52 mg/dL (2-149) 05/07/18 06:12 Cholesterol 184 mg/dL (50-199) 05/07/18 06:12 LDL Cholesterol Direct 118 mg/dL (50-130) 05/07/18 06:12 HDL Cholesterol 61 mg/dL (40-59) H 05/07/18 06:12 Cholesterol/HDL Ratio 3.01 % 05/07/18 06:12
[2018-05-07] MEDS ORDERED: ATIVAN IV NR (23:45)
--- NOTE | 2018-05-08 05:42 | Physician Progress Note ---
SUBJECTIVE: The patient was admitted for possible multiple sclerosis. She had numbness in the left side of the face and also the left index finger. She is being treated for multiple sclerosis with methylprednisolone. OBJECTIVE: Basically the same from yesterday. Numbness only around the mouth and also the left index finger. She has a Babinski on the left side. ASSESSMENT: Most likely multiple sclerosis. The patient has a history of stroke and also heart attack. PLAN: MRI of the brain with and without contrast as well as cervical and thoracic cord. Continue methylprednisolone. Continue Aubagio and Rituxan. Physical therapy. JOB# [id number] MARIA ESTHER/ANI
[2018-05-08] MEDS: NACL 0.9% 1000 ML 1,000 ML IV SCH (06:30)
[2018-05-08] MEDS: SOLU-Medrol 1,000 MG in NACL 0.9% 250ML 250 ML IV SCH (14:35)
[2018-05-08] MEDS: ZESTRIL PO SCH (14:35)
[2018-05-08] MEDS: FLOMAX PO SCH (14:36)
[2018-05-08] MEDS: NORVASC PO SCH (14:36)
[2018-05-08] MEDS: PEPCID PO SCH ×2 (14:36→22:05)
[2018-05-08] MEDS: COREG PO SCH ×2 (14:36→22:05)
[2018-05-08] MEDS: HALFPRIN EC PO SCH (14:36)
[2018-05-08] MEDS: HCTZ PO SCH (14:37)
[2018-05-08] MEDS: SODIUM CHLORIDE FLUSH SYRINGE 10 ML IV SCH ×2 (14:38→22:05)
--- NOTE | 2018-05-08 17:16 | Magnetic Resonance Report ---
FINAL REPORT EXAM: MR BRAIN W CON HISTORY: multiple sclerosis TECHNIQUE: Coronal and axial brain MR imaging after IV contrast. PRIORS: Head CT 05/05/2018 FINDINGS: The included air filled sinuses contain no acute air-fluid level. There is ventricular and sulcal prominence compatible with global symmetric cerebrocortical atrophy. The brain is without mass, mass effect, hemorrhage, or acute infarct. There is no midline shift. No abnormal enhancement is present, white matter or otherwise, on the T1-weighted images after IV administration of contrast. IMPRESSION: No acute CVA or brain mass No evidence of abnormal white matter contrast enhancement
--- NOTE | 2018-05-08 17:22 | Magnetic Resonance Report ---
FINAL REPORT EXAM: MR THORACIC SPINE WO/W CON HISTORY: multiple sclerosis TECHNIQUE: MRI examination of the thoracic spine with and without IV contrast PRIORS: None. FINDINGS: Software fails to link levels and sequences. Image demographics overlies the upper and lower spine, limiting the examination. Thoracic cord: Normal Vertebral compression fracture: None. Schmorl's node upper endplate lower thoracic spine. Spondylolisthesis: None Bone marrow edema: None Conus medullaris signal and position: Normal Disc narrowing: None Diffuse disc bulge: None Focal disc protrusion: None Central canal stenosis: None Neural foraminal stenosis: None Degenerative change: Multilevel slight Abnormal IV contrast enhancement: None Suggestion of small pleural effusion layers posteriorly on the right. IMPRESSION: Suggestion of small right pleural effusion layering posteriorly Multilevel slight degenerative change
--- NOTE | 2018-05-08 17:24 | Progress Note ---
Assessment and Plan Assessment and plan: 57 y/o female with hx of Multiple slerosis strokex2 and HTN who pw perioral numbness, and numbness of left index finger. Neurology found left babinsky. * MRI brain w/ and wo contrast Impression: No acute CVA or brain mass, no evidence of abnormal white matter contrast enhancement * MRI spine pending Suspect subacute cva ruled out aspirin, statin, neuro input appreciate Multiple sclerosis exacerbation continue steroids fup MR brain and spine with contrast -was diagnosed in [facility] 10 years ago, and details are unclear Hypertension, diet controlled stable OAB (overactive bladder) on Flomax for Bladder obstruction in females DVT prophylaxis SCDs History Interval history: Patient was seen and examined. Follow-up on current diagnosis numbness. Overnight uneventful. Patient denies any chest pain, shortness breath, nausea/ vomiting or severe headaches. Imaging, nursing note, chart, labs and old chart reviewed. Discussed with patient. Hospitalist Physical - Physical exam Narrative exam: GEN: WDWN, NAD, Awake, Alert, Orientated x 3 HEENT: NCAT, EOMI, PERRL, OP Clear NECK: supple, no adenopathy, no thyromegaly, no JVD CVS/HEART: RRR, normal S1S2, pulses present bilaterally CHEST/LUNGS: CTA B, Symmetrical chest expansion, good air entry bilaterally GI/Abdomen: soft, NTND, good bowel sounds, no guarding or rebound /Bladder: no suprapubic tenderness, no CVA or paraspinal tenderness EXT/Skin: no c/c/e, no obvious rash MSK: FROM x 4 Neuro: CN 2-12 grossly intact, no new focal deficits, left babinsky per Neurologist note Psych: calm - Constitutional Vitals: Temp Pulse Resp BP Pulse Ox 98.1 F 73 20 136/89 99 05/08/18 16:25 05/08/18 16:25 05/08/18 16:25 05/08/18 16:25 05/08/18 16:25 General appearance: Present: no acute distress, well-nourished Results - Labs CBC & Chem 7: 05/07/18 06:12 05/07/18 06:12 Labs: Laboratory Last Values WBC 5.4 K/mm3 (4.5-11.0) 05/07/18 06:12 RBC 3.84 M/mm3 (3.65-5.03) 05/07/18 06:12 Hgb 12.9 gm/dl (10.1-14.3) 05/07/18 06:12 Hct 37.4 % (30.3-42.9) 05/07/18 06:12 MCV 97 fl (79-97) 05/07/18 06:12 MCH 34 pg (28-32) H 05/07/18 06:12 MCHC 34 % (30-34) 05/07/18 06:12 RDW 15.5 % (13.2-15.2) H 05/07/18 06:12 Plt Count 152 K/mm3 (140-440) 05/07/18 06:12 Lymph % (Auto) 12.6 % (13.4-35.0) L 05/07/18 06:12 [place] % (Auto) 0.6 % (0.0-7.3) 05/07/18 06:12 Eos % (Auto) 0.0 % (0.0-4.3) 05/07/18 06:12 Baso % (Auto) 0.5 % (0.0-1.8) 05/07/18 06:12 Lymph # 0.7 K/mm3 (1.2-5.4) L 05/07/18 06:12 [place] # 0.0 K/mm3 (0.0-0.8) 05/07/18 06:12 Eos # 0.0 K/mm3 (0.0-0.4) 05/07/18 06:12 Baso # 0.0 K/mm3 (0.0-0.1) 05/07/18 06:12 Seg Neutrophils % 86.3 % (40.0-70.0) H 05/07/18 06:12 Seg Neutrophils # 4.7 K/mm3 (1.8-7.7) 05/07/18 06:12 PT 14.1 Sec. (12.2-14.9) 05/05/18 11:34 INR 1.04 (0.87-1.13) 05/05/18 11:34 APTT 33.6 Sec. (24.2-36.6) 05/05/18 11:34 Thrombin Time 16.8 Sec. (15.1-19.6) 05/05/18 11:34 Sodium 141 mmol/L (137-145) 05/07/18 06:12 Potassium 4.1 mmol/L (3.6-5.0) 05/07/18 06:12 Chloride 107.0 mmol/L (98-107) 05/07/18 06:12 Carbon Dioxide 22 mmol/L (22-30) 05/07/18 06:12 Anion Gap 16 mmol/L 05/07/18 06:12 BUN 18 mg/dL (7-17) H 05/07/18 06:12 Creatinine 1.2 mg/dL (0.7-1.2) 05/07/18 06:12 Estimated GFR 56 ml/min 05/07/18 06:12 BUN/Creatinine Ratio 15 % 05/07/18 06:12 Glucose 165 mg/dL (65-100) H 05/07/18 06:12 POC Glucose 142 (70-105) H 05/05/18 10:55 Hemoglobin A1c 6.7 % (4-6) H 05/06/18 06:39 Calcium 8.8 mg/dL (8.4-10.2) 05/07/18 06:12 Total Bilirubin 0.50 mg/dL (0.1-1.2) 05/07/18 06:12 Direct Bilirubin < 0.2 mg/dL (0-0.2) 05/05/18 11:34 Indirect Bilirubin 0.1 mg/dL 05/05/18 11:34 AST 22 units/L (5-40) 05/07/18 06:12 ALT 22 units/L (7-56) 05/07/18 06:12 Alkaline Phosphatase 58 units/L (35-129) 05/07/18 06:12 Total Creatine Kinase 111 units/L (30-135) 05/05/18 11:34 CK-MB (CK-2) < 1.0 ng/mL (0.0-4.0) 05/05/18 11:34 CK-MB (CK-2) Rel Index 0.9 (0-4) 05/05/18 11:34 Troponin T < 0.010 ng/mL (0.00-0.029) 05/05/18 11:34 Total Protein 7.3 g/dL (6.3-8.2) 05/07/18 06:12 Albumin 3.8 g/dL (3.9-5) L 05/07/18 06:12 Albumin/Globulin Ratio 1.1 % 05/07/18 06:12 Triglycerides 52 mg/dL (2-149) 05/07/18 06:12 Cholesterol 184 mg/dL (50-199) 05/07/18 06:12 LDL Cholesterol Direct 118 mg/dL (50-130) 05/07/18 06:12 HDL Cholesterol 61 mg/dL (40-59) H 05/07/18 06:12 Cholesterol/HDL Ratio 3.01 % 05/07/18 06:12
--- NOTE | 2018-05-08 17:28 | Magnetic Resonance Report ---
FINAL REPORT EXAM: MR CERVICAL SPINE WO/W CON HISTORY: multiple sclerosis TECHNIQUE: MRI examination of the cervical spine without and with IV contrast PRIORS: None. FINDINGS: Cervical cord and visualized upper portion of the thoracic cord: Normal Bone marrow edema: Adjacent to the C5-6 narrowed disc may reflect active phase of degenerative disc disease Vertebral compression fracture: None Anterolisthesis: None Retrolisthesis: C4-5 trace, C5-6 trace Disc narrowing: C5-6 severe, C6-7 severe Diffuse disc bulge: C4-5 slight, C5-6 slight, C6-7 slight Focal disc protrusion: None Central canal stenosis: None Degenerative hypertrophic changes at the facet joints, uncinate joints, vertebral endplates, and disc bulge contribute to neural foraminal stenosis. Right neural foraminal stenosis: C4-5 slight, C5-6 moderate, C6-7 slight to moderate Left neural foraminal stenosis: C5-6 moderate, C6-7 moderate to severe Abnormal IV contrast enhancement: None IMPRESSION: No MRI evidence of cervical cord lesion. Multilevel degenerative change, retrolisthesis, disc narrowing, diffuse disc bulge, and neural foraminal stenosis
[2018-05-08] MEDS: NEURONTIN PO SCH (18:44)
--- NOTE | 2018-05-09 07:34 | Progress Note ---
Assessment and Plan Assessment and plan: 57 y/o female with hx of Multiple slerosis strokex2 and HTN who pw perioral numbness, and numbness of left index finger. Neurology found left babinsky. * MRI brain w/ and wo contrast Impression: No acute CVA or brain mass, no evidence of abnormal white matter contrast enhancement * MRI T-spine with with and without IV contrast reported as small right pleural effusion layering posteriorly, multilevel slight degenerative change * MRI C-spine with and without contrast reported as no evidence of cervical cord lesion, multilevel degenerative change, retrolisthesis, disc narrowing, diffuse disc bulge, neural foraminal stenosis. Suspect subacute cva ruled out aspirin, statin, neuro input appreciate Multiple sclerosis exacerbation continue steroids fup MR brain and spine with contrast She was diagnosed in [place] approx. 10 years ago, and details are unclear Hypertension, diet controlled stable OAB (overactive bladder) on Flomax for Bladder obstruction in females Morbid Obese, BMI 54.4 Counseling done, lifestyle modification DVT prophylaxis SCDs Disposition, continue inpatient care, anticipate d/c soon. History Interval history: Patient was seen and examined. Follow-up on current diagnosis numbness. Overnight uneventful. Patient denies any chest pain, shortness breath, nausea/ vomiting or severe headaches. Imaging, nursing note, chart, labs and old chart reviewed. Discussed with patient. Hospitalist Physical - Physical exam Narrative exam: GEN: WDWN, NAD, Awake, Alert, Orientated x 3 HEENT: NCAT, EOMI, PERRL, OP Clear NECK: supple, no adenopathy, no thyromegaly, no JVD CVS/HEART: RRR, normal S1S2, pulses present bilaterally CHEST/LUNGS: CTA B, Symmetrical chest expansion, good air entry bilaterally GI/Abdomen: soft, NTND, good bowel sounds, no guarding or rebound /Bladder: no suprapubic tenderness, no CVA or paraspinal tenderness EXT/Skin: no c/c/e, no obvious rash MSK: FROM x 4 Neuro: CN 2-12 grossly intact, no new focal deficits, left babinsky per Neurologist note Psych: calm - Constitutional Vitals: Temp Pulse Resp BP Pulse Ox 97.7 F 64 12 115/68 96 05/09/18 05:35 05/09/18 05:35 05/09/18 05:35 05/09/18 05:35 05/09/18 05:35 General appearance: Present: no acute distress, well-nourished Results - Labs CBC & Chem 7: 05/07/18 06:12 05/07/18 06:12 Labs: Laboratory Last Values WBC 5.4 K/mm3 (4.5-11.0) 05/07/18 06:12 RBC 3.84 M/mm3 (3.65-5.03) 05/07/18 06:12 Hgb 12.9 gm/dl (10.1-14.3) 05/07/18 06:12 Hct 37.4 % (30.3-42.9) 05/07/18 06:12 MCV 97 fl (79-97) 05/07/18 06:12 MCH 34 pg (28-32) H 05/07/18 06:12 MCHC 34 % (30-34) 05/07/18 06:12 RDW 15.5 % (13.2-15.2) H 05/07/18 06:12 Plt Count 152 K/mm3 (140-440) 05/07/18 06:12 Lymph % (Auto) 12.6 % (13.4-35.0) L 05/07/18 06:12 [place] % (Auto) 0.6 % (0.0-7.3) 05/07/18 06:12 Eos % (Auto) 0.0 % (0.0-4.3) 05/07/18 06:12 Baso % (Auto) 0.5 % (0.0-1.8) 05/07/18 06:12 Lymph # 0.7 K/mm3 (1.2-5.4) L 05/07/18 06:12 [place] # 0.0 K/mm3 (0.0-0.8) 05/07/18 06:12 Eos # 0.0 K/mm3 (0.0-0.4) 05/07/18 06:12 Baso # 0.0 K/mm3 (0.0-0.1) 05/07/18 06:12 Seg Neutrophils % 86.3 % (40.0-70.0) H 05/07/18 06:12 Seg Neutrophils # 4.7 K/mm3 (1.8-7.7) 05/07/18 06:12 PT 14.1 Sec. (12.2-14.9) 05/05/18 11:34 INR 1.04 (0.87-1.13) 05/05/18 11:34 APTT 33.6 Sec. (24.2-36.6) 05/05/18 11:34 Thrombin Time 16.8 Sec. (15.1-19.6) 05/05/18 11:34 Sodium 141 mmol/L (137-145) 05/07/18 06:12 Potassium 4.1 mmol/L (3.6-5.0) 05/07/18 06:12 Chloride 107.0 mmol/L (98-107) 05/07/18 06:12 Carbon Dioxide 22 mmol/L (22-30) 05/07/18 06:12 Anion Gap 16 mmol/L 05/07/18 06:12 BUN 18 mg/dL (7-17) H 05/07/18 06:12 Creatinine 1.2 mg/dL (0.7-1.2) 05/07/18 06:12 Estimated GFR 56 ml/min 05/07/18 06:12 BUN/Creatinine Ratio 15 % 05/07/18 06:12 Glucose 165 mg/dL (65-100) H 05/07/18 06:12 POC Glucose 197 (70-105) H 05/08/18 22:30 Hemoglobin A1c 6.7 % (4-6) H 05/06/18 06:39 Calcium 8.8 mg/dL (8.4-10.2) 05/07/18 06:12 Total Bilirubin 0.50 mg/dL (0.1-1.2) 05/07/18 06:12 Direct Bilirubin < 0.2 mg/dL (0-0.2) 05/05/18 11:34 Indirect Bilirubin 0.1 mg/dL 05/05/18 11:34 AST 22 units/L (5-40) 05/07/18 06:12 ALT 22 units/L (7-56) 05/07/18 06:12 Alkaline Phosphatase 58 units/L (35-129) 05/07/18 06:12 Total Creatine Kinase 111 units/L (30-135) 05/05/18 11:34 CK-MB (CK-2) < 1.0 ng/mL (0.0-4.0) 05/05/18 11:34 CK-MB (CK-2) Rel Index 0.9 (0-4) 05/05/18 11:34 Troponin T < 0.010 ng/mL (0.00-0.029) 05/05/18 11:34 Total Protein 7.3 g/dL (6.3-8.2) 05/07/18 06:12 Albumin 3.8 g/dL (3.9-5) L 05/07/18 06:12 Albumin/Globulin Ratio 1.1 % 05/07/18 06:12 Triglycerides 52 mg/dL (2-149) 05/07/18 06:12 Cholesterol 184 mg/dL (50-199) 05/07/18 06:12 LDL Cholesterol Direct 118 mg/dL (50-130) 05/07/18 06:12 HDL Cholesterol 61 mg/dL (40-59) H 05/07/18 06:12 Cholesterol/HDL Ratio 3.01 % 05/07/18 06:12
--- NOTE | 2018-05-09 10:46 | Query- Renal Failure ---
Leighton Mullins___Wise Date:__05/09/2018 Technical Training Manager/CDS:__Raquel/Mine Phone#:__[phone] Exercise your independent professional judgment when responding to query. Questions asked do not imply a particular answer is desired or expected. We greatly appreciate your clarification on this issue. Clinical Documentation States: Mrs. Cramer is 57 years old female with history of multiple sclerosis, stroke 2 and hypertension. Patient stated that she's been having numbness to her left upper and lower extremity including left face also. Patient stated that her symptoms started yesterday. Patient stated that this is different from her usual MS presentation. The Hospitalist H&P note stated "DEEPA MIlD Iv fluids for now." Clinical Findings Show: Creatinine 05/05 1.4 05/07 1.2 Please clarify if you mean: Acute Renal Failure with or due to: [ ] Tubular Necrosis [ ] Medullary Necrosis [ x] Vasomotor Nephropathy [ ] Shock Kidney [ ] Tubular Nephrosis [ ] Renal Tubular Stasis [ ] Cortical Necrosis [ ] Acute Renal Failure (unspecified) [ ] Lower Tubular Nephrosis [ ] Other: [ ] Not Applicable Present on Admission: [ ] Yes (Y) [ x] Clinically undeterminable (W) [ ] No (N) Please also document response in your Progress Notes and/or Discharge Summary and indicate if the condition was present on admission. PERRY
[2018-05-09] MEDS: HALFPRIN EC PO SCH (11:44)
[2018-05-09] MEDS: PEPCID PO SCH (11:45)
[2018-05-09] MEDS: FLOMAX PO SCH (11:45)
[2018-05-09] MEDS: HCTZ PO SCH (11:51)
[2018-05-09] MEDS: COREG PO SCH (11:52)
[2018-05-09] MEDS: NORVASC PO SCH (11:53)
[2018-05-09] MEDS: ZESTRIL PO SCH (11:54)
[2018-05-09] MEDS: SODIUM CHLORIDE FLUSH SYRINGE 10 ML IV SCH (11:55)
[2018-05-09 13:20] VITALS: BP 114/73
--- NOTE | 2018-05-09 14:35 | Discharge Summary ---
Providers - Providers Date of Admission: 05/05/18 13:49 Date of discharge: 05/09/18 Attending physician: NERISSA PALM 05/06/18 06:19 Consult to Physician [CONS] Routine Comment: Consulting Provider: ANN LEVI Physician Instructions: Reason For Exam: CVA versus MS flare 05/06/18 06:25 Occupational Therapy Evaluate and Treat [CONS] Routine Comment: Reason For Exam: Neuro deficits Physical Therapy Evaluation and Treat [CONS] Routine Comment: Reason For Exam: Neuro deficits Primary care physician: ASSOCIATE PROPERTY MANAGER Hospitalization Condition: Stable Hospital course: 57 y/o female with hx of Multiple slerosis strokex2 and HTN who pw perioral numbness, and numbness of left index finger. Neurology found left babinsky. * MRI brain w/ and wo contrast Impression: No acute CVA or brain mass, no evidence of abnormal white matter contrast enhancement * MRI T-spine with with and without IV contrast reported as small right pleural effusion layering posteriorly, multilevel slight degenerative change * MRI C-spine with and without contrast reported as no evidence of cervical cord lesion, multilevel degenerative change, retrolisthesis, disc narrowing, diffuse disc bulge, neural foraminal stenosis. Suspect subacute cva ruled out aspirin, statin, neuro input appreciate Multiple sclerosis exacerbation continue steroids fup MR brain and spine with contrast She was diagnosed in [place] approx. 10 years ago, and details are unclear Hypertension, diet controlled stable OAB (overactive bladder) on Flomax for Bladder obstruction in females Morbid Obese, BMI 54.4 Counseling done, lifestyle modification DVT prophylaxis SCDs Disposition, continue inpatient care, anticipate d/c soon. Disposition: DC/[place]-[address] [facility] Time spent for discharge: 32 minutes Core Measure Documentation - Palliative Care Palliative Care/ Comfort Measures: Not Applicable - Core Measures Any of the following diagnoses?: none - VTE Discharge Requirements Deep Vein Thrombosis/Pulmonary Embolism Present on Admission: No Has pt received <5 days of overlap therapy or INR<2.0: No Anticoagulant overlap therapy prescribed at discharge: No Contraindication No Overlap Therapy order at DC: Not Indicated Exam - Physical Exam Narrative exam: GEN: WDWN, NAD, Awake, Alert, Orientated x 3 HEENT: NCAT, EOMI, PERRL, OP Clear NECK: supple, no adenopathy, no thyromegaly, no JVD CVS/HEART: RRR, normal S1S2, pulses present bilaterally CHEST/LUNGS: CTA B, Symmetrical chest expansion, good air entry bilaterally GI/Abdomen: soft, NTND, good bowel sounds, no guarding or rebound /Bladder: no suprapubic tenderness, no CVA or paraspinal tenderness EXT/Skin: no c/c/e, no obvious rash MSK: FROM x 4 Neuro: CN 2-12 grossly intact, no new focal deficits, left babinsky per Neurologist note Psych: calm - Constitutional Vitals: Temp Pulse Resp BP Pulse Ox 97.4 F L 59 L 18 114/73 97 05/09/18 12:08 05/09/18 12:08 05/09/18 12:08 05/09/18 12:08 05/09/18 12:08 Plan Activity: up only with assistance, fall precautions, other (no strenous activity unless cleared by PCP) Diet: low salt Follow up with: PRIMARY CARE, [Primary Care Provider] - 3-5 Days MAAME DOWNS MD [Staff Physician] - 7 Days Prescriptions: AtorvaSTATin [Lipitor] 40 mg PO QHS #30 tablet amLODIPine [Norvasc] 10 mg PO QDAY #30 tablet Aspirin EC [Aspirin Enteric Coated TAB] 81 mg PO QDAY #30 tablet Carvedilol [Coreg] 12.5 mg PO BID #60 tablet Divalproex ER [Depakote ER] 250 mg PO BID #60 tablet Gabapentin [Neurontin] 300 mg PO QPM #30 capsule hydroCHLOROthiazide [HCTZ] 25 mg PO QDAY #30 tablet HYDROcodone/APAP 5-325 [[place] 5-325 mg TAB] 1 each PO Q6HR PRN #12 tablet PRN Reason: Pain Lisinopril [Zestril TAB] 20 mg PO QDAY #30 tablet Lisinopril/Hydrochlorothiazide [Zestoretic 10-12.5 mg Tablet] 20 - 25 mg PO DAILY #30 tablet methylPREDNISolone [Medrol Dose [place]] 1 dose PO DAILY #1 pack
--- NOTE | 2018-05-09 15:51 | Physician Progress Note ---
NEUROLOGY PROGRESS NOTE SUBJECTIVE: The patient is doing very well, but she still continues to complain of numbness in the left side of her face around the mouth. Also, the left index finger. She is currently on methylprednisolone. She has not developed any new symptoms. OBJECTIVE: Basically the same. Subjective numbness, left side of the mouth as well as the left index finger. Incidental Babinski on the left side. MRI of the brain with contrast. MRI of the cervical cord with and without contrast, MRA of the thoracic cord with and without contrast, all of them showed no evidence of plaque or multiple sclerosis. No enhancing lesion. ASSESSMENT: Clinically this still appeared to be multiple sclerosis. She has a previous history of stroke and also heart attack. PLAN: Continue the methylprednisolone, finish off the 5-day course and after this, she should be referred to the [facility], especially about continuation of [place] and [place] also for a more definitive diagnosis. This was discussed with Dr. Marco Melvin, hospitalist in charge. JOB# [id number] MARIA ESTHER/ANI
[2018-05-09] MEDS: SOLU-Medrol 1,000 MG in NACL 0.9% 250ML 250 ML IV SCH (16:19)
[2018-05-09] MEDS: NEURONTIN PO SCH (18:55)
== END 2018-05-09 22:00 | disposition home health service (06) | DRG 58 ==
LOC: ED 10:20 → 4A 13:49 → 3A 05-08 22:42
PROVIDERS: ADMIT Internal Medicine; ATTEND Internal Medicine
DX: G35 Multiple sclerosis (principal); N17.0 Acute kidney failure with tubular necrosis; Z68.43 Body mass index [BMI] 50.0-59.9, adult; I10 Essential (primary) hypertension; N32.81 Overactive bladder; E11.9 Type 2 diabetes mellitus without complications; F17.210 Nicotine dependence, cigarettes, uncomplicated; R29.701 NIHSS score 1; E66.01 Morbid (severe) obesity due to excess calories; Z82.49 Family history of ischemic heart disease and other diseases of the circulatory system; Z86.73 Personal history of transient ischemic attack (TIA), and cerebral infarction without residual deficits; Z79.899 Other long term (current) drug therapy
CPT/HCPCS: 36415; 70450; 70544; 70551; 70552; 72156; 72157; 80048; 80053; 80061; 80074; 82550; 82553; 82962; 83036; 84484; 85025; 85610; 85670; 85730; 93005; 93010; 93306; 93880; 96360; 99291; A9270-GY; A9577; G8978-GP; G8979-GP; J2060; J2930; J7030; J7050

== ENCOUNTER 2018-05-12 11:33 | Emergency (ER) | payer MEDICARE ==
[2018-05-12] MEDS ORDERED: ZOFRAN IV ONE (11:57)
[2018-05-12] MEDS ORDERED: IMODIUM PO ONE (12:18)
[2018-05-12 12:21] LABS: Basophils % (Auto) 0.2 % (0.0-1.8); Calcium 8.8 mg/dL (8.4-10.2); Eosinophils % (Auto) 0.4 % (0.0-4.3); Hematocrit 41.3 % (30.3-42.9); Hemoglobin 14.1 gm/dl (10.1-14.3); Lymphocytes # (Auto) 1.2 K/mm3 (1.2-5.4); Mean Corpuscular HGB Conc 34 % (30-34); Mean Corpuscular Hemoglobin 34 pg (28-32); Mean Corpuscular Volume 99 fl (79-97); Monocytes # (Auto) 0.8 K/mm3 (0.0-0.8); Platelet Count 135 K/mm3 (140-440); Red Blood Count 4.17 M/mm3 (3.65-5.03); Red Cell Distribution Width 15.8 % (13.2-15.2)
[2018-05-12] MEDS ORDERED: NACL 0.9% 1000 ML 1,000 ML IV ONE (12:21)
--- NOTE | 2018-05-12 12:22 | Emergency Department Report ---
ED N/V/D HPI - General Chief complaint: Weakness Stated complaint: GENERAL WEAKNESS Time Seen by Provider: 05/12/18 11:48 Source: patient, EMS Mode of arrival: Stretcher Limitations: Other - History of Present Illness Initial comments: 57-year-old female from personal [facility] with history of MS presents to ED with complaints of nausea, vomiting, diarrhea. Patient reports onset of symptoms this morning. States has had 2 episodes of vomiting and one episode of diarrhea. Patient had another episode of diarrhea here in ED. Patient reports episode of abdominal cramping that has since resolved. She denies fever or chills. The patient recently admitted on 05/05 for perioral and left hand numbness. Workup was necessary and weight is a MS exacerbation. Patient was discharged 3 days ago, 05/09, on a Medrol Dosepak. MD complaint: nausea, vomiting, diarrhea, abdominal pain -: This morning Description of Vomiting: food contents, watery Description of Diarrhea: other (loose) Associated Abdominal Pain: Yes Location: diffuse Radiation: none Severity: mild Quality: cramping Consistency: now resolved Improves with: none Worsens with: none Context: other (unknown) Associated Symptoms: weakness (generalized). denies: fever/chills - Related Data Home Medications Medication Instructions Recorded Confirmed Last Taken Alendronate Sodium [Fosamax] 70 mg PO QWEEK 05/06/18 05/06/18 04/30/18 [place]-3 Fatty Acids/Fish Oil [Fish 1,000 mg PO DAILY 05/06/18 05/06/18 05/05/18 Oil] Previous Rx's Medication Instructions Recorded Last Taken Type Acetaminophen [Acetaminophen TAB] 650 mg PO Q4H PRN #30 tablet 05/09/18 Unknown Rx Aspirin EC [Aspirin Enteric Coated 81 mg PO QDAY #30 tablet 05/09/18 Unknown Rx TAB] AtorvaSTATin [Lipitor] 40 mg PO QHS #30 tablet 05/09/18 Unknown Rx Carvedilol [Coreg] 12.5 mg PO BID #60 tablet 05/09/18 Unknown Rx Divalproex ER [Depakote ER] 250 mg PO BID #60 tablet 05/09/18 Unknown Rx Famotidine [Pepcid] 20 mg PO BID #30 tablet 05/09/18 Unknown Rx Gabapentin [Neurontin] 300 mg PO QPM #30 capsule 05/09/18 Unknown Rx HYDROcodone/APAP 5-325 [[place] 1 each PO Q6HR PRN #12 tablet 05/09/18 Unknown Rx 5-325 mg TAB] Lisinopril [Zestril TAB] 20 mg PO QDAY #30 tablet 05/09/18 Unknown Rx Lisinopril/Hydrochlorothiazide 20 - 25 mg PO DAILY #30 tablet 05/09/18 Unknown Rx [Zestoretic 10-12.5 mg Tablet] amLODIPine [Norvasc] 10 mg PO QDAY #30 tablet 05/09/18 Unknown Rx hydroCHLOROthiazide [HCTZ] 25 mg PO QDAY #30 tablet 05/09/18 Unknown Rx methylPREDNISolone [Medrol Dose 1 dose PO DAILY #1 pack 05/09/18 Unknown Rx [place]] Dicyclomine [Bentyl] 20 mg PO QID PRN #20 tablet 05/12/18 Unknown Rx Ondansetron [Zofran Odt] 4 mg PO Q8HR PRN #20 tab.rapdis 05/12/18 Unknown Rx Allergies Allergy/AdvReac Type Severity Reaction Status Date / Time No Known Allergies Allergy Verified 04/10/18 23:00 ED Review of Systems ROS: Stated complaint: GENERAL WEAKNESS Other details as noted in HPI Comment: All other systems reviewed and negative Constitutional: denies: chills, fever Gastrointestinal: abdominal pain, nausea, vomiting, diarrhea Neurological: other (generalized weakness) ED Past Medical Hx - Past Medical History Previous Medical History?: Yes Hx Hypertension: Yes Hx CVA: Yes Hx Heart Attack/AMI: Yes Additional medical history: MS diagnosed 10 years ago. - Social History Smoking Status: Current Every Day Smoker Substance Use Type: None - Medications Home Medications: Home Medications Medication Instructions Recorded Confirmed Last Taken Type Alendronate Sodium [Fosamax] 70 mg PO QWEEK 05/06/18 05/06/18 04/30/18 History [place]-3 Fatty Acids/Fish Oil [Fish 1,000 mg PO DAILY 05/06/18 05/06/18 05/05/18 History Oil] Acetaminophen [Acetaminophen TAB] 650 mg PO Q4H PRN #30 tablet 05/09/18 Unknown Rx Aspirin EC [Aspirin Enteric Coated 81 mg PO QDAY #30 tablet 05/09/18 Unknown Rx TAB] AtorvaSTATin [Lipitor] 40 mg PO QHS #30 tablet 05/09/18 Unknown Rx Carvedilol [Coreg] 12.5 mg PO BID #60 tablet 05/09/18 Unknown Rx Divalproex ER [Depakote ER] 250 mg PO BID #60 tablet 05/09/18 Unknown Rx Famotidine [Pepcid] 20 mg PO BID #30 tablet 05/09/18 Unknown Rx Gabapentin [Neurontin] 300 mg PO QPM #30 capsule 05/09/18 Unknown Rx HYDROcodone/APAP 5-325 [[place] 1 each PO Q6HR PRN #12 tablet 05/09/18 Unknown Rx 5-325 mg TAB] Lisinopril [Zestril TAB] 20 mg PO QDAY #30 tablet 05/09/18 Unknown Rx Lisinopril/Hydrochlorothiazide 20 - 25 mg PO DAILY #30 tablet 05/09/18 Unknown Rx [Zestoretic 10-12.5 mg Tablet] amLODIPine [Norvasc] 10 mg PO QDAY #30 tablet 05/09/18 Unknown Rx hydroCHLOROthiazide [HCTZ] 25 mg PO QDAY #30 tablet 05/09/18 Unknown Rx methylPREDNISolone [Medrol Dose 1 dose PO DAILY #1 pack 05/09/18 Unknown Rx [place]] Dicyclomine [Bentyl] 20 mg PO QID PRN #20 tablet 05/12/18 Unknown Rx Ondansetron [Zofran Odt] 4 mg PO Q8HR PRN #20 tab.rapdis 05/12/18 Unknown Rx ED Physical Exam - General Limitations: Other General appearance: alert, in no apparent distress - Head Head exam: Present: atraumatic, normocephalic - ENT ENT exam: Present: mucous membranes moist - Neck Neck exam: Present: normal inspection - Respiratory Respiratory exam: Present: normal lung sounds bilaterally. Absent: respiratory distress - Cardiovascular Cardiovascular Exam: Present: regular rate, normal rhythm - GI/Abdominal GI/Abdominal exam: Present: soft. Absent: distended, tenderness - Extremities Exam Extremities exam: Present: normal inspection - Neurological Exam Neurological exam: Present: alert, normal gait, motor sensory deficit ( paresthesias to left hand and face at baseline) - Psychiatric Psychiatric exam: Present: normal affect, normal mood - Skin Skin exam: Present: warm, dry, intact, normal color. Absent: rash ED Course Vital Signs 05/12/18 05/12/18 05/12/18 12:30 13:09 13:30 Pulse Rate 60 Respiratory 16 16 Rate Blood Pressure 111/73 O2 Sat by Pulse 98 98 97 Oximetry 05/12/18 05/12/18 05/12/18 14:00 14:30 15:01 Pulse Rate 53 L 51 L 53 L Respiratory 12 15 14 Rate Blood Pressure 99/56 109/70 132/86 O2 Sat by Pulse 98 96 95 Oximetry - Reevaluation(s) Reevaluation #1: 05/12/18 15:02 Pt feeling itz better at this time. No further emesis or episodes of diarrhea in ED - Consultations Consultation #1: 05/12/18 14:59 Spoke w/ Dr Leger regarding gallstones, mild CBD dilation, and labs. No intervention necessary at this time. States pt should f/u in office. ED Medical Decision Making - Lab Data Result diagrams: 05/12/18 11:50 05/12/18 11:50 - Radiology Data Radiology results: report reviewed, image reviewed - Medical Decision Making 57-year-old female with nonspecific abdominal pain, nausea, vomiting, and diarrhea today. Abdomen nontender on exam. Vital signs normal. WBCs normal. Patient hypokalemic with potassium of 3.0. This is repleted with by mouth potassium. LFTs mildly elevated compared to her days ago on 05/05. So, ultrasound of the right upper quadrant was ordered which shows multiple gallstones and mildly dilated CBD. No signs of cholecystitis on ultrasound. Spoke with Dr. Leger, general surgeon. States given findings on ultrasound and labs, no procedural intervention needed at this time. Pt needs to follow up as an outpatient. Patient feeling much better. Tolerating by mouth. Will discharge at this time. - Differential Diagnosis gastroenteritis, UTI, pancreatitis Critical care attestation.: If time is entered above; I have spent that time in minutes in the direct care of this critically ill patient, excluding procedure time. ED Disposition Clinical Impression: Gallstones, Hypokalemia, Vomiting and diarrhea Disposition: TO HOME OR SELFCARE Is pt being admited?: No Condition: Stable Instructions: Biliary Colic (ED), Hypokalemia (ED), Acute Nausea and Vomiting ( ED) Prescriptions: Dicyclomine [Bentyl] 20 mg PO QID PRN #20 tablet PRN Reason: abdominal pain Ondansetron [Zofran Odt] 4 mg PO Q8HR PRN #20 tab.rapdis PRN Reason: Vomiting Referrals: SONIA LEGER MD [Staff Physician] - 2-3 Days PRIMARY CARE, [Primary Care Provider] - 2-3 Days Time of Disposition: 15:08
[2018-05-12] MEDS ORDERED: K-DUR PO ONE ×2 (12:39→15:04)
[2018-05-12 12:51] LABS: Albumin 3.7 g/dL (3.9-5); Bilirubin,Direct 0.3 mg/dL (0-0.2)
[2018-05-12 13:36] LABS: Bacteria,Urine 1+ /HPF (Negative); Bilirubin,Urine NEG (Negative); Blood,Urine SM (Negative); Color,Urine Yellow (Yellow); Hyaline Casts,Urine 1 /LPF; Mucus,Urine FEW /HPF; Protein,Urine <15 mg/dL mg/dL (Negative); Urobilinogen,Urine < 2.0 mg/dL (<2.0)
--- NOTE | 2018-05-12 14:40 | Ultrasound Report ---
FINAL REPORT EXAM: US ABDOMEN LIMITED HISTORY: abdominal pain, N/V, elevated liver enzymes TECHNIQUE: Directed sonography of the right upper quadrant. PRIORS: None. FINDINGS: Gallbladder contains multiple, echogenic and shadowing calculi. Wall thickness within normal limits. Common bile duct mildly dilated measuring 7.4 mm in maximal diameter. Negative sonographic Farnsworth's sign. Liver has normal homogeneous echogenicity without focal abnormalities. Visualized portions of right kidney show mildly increased cortical echogenicity and probable subcentimeter cyst in the lower pole. No significant hydronephrosis. Pancreas poorly visualized. IMPRESSION: 1. Cholelithiasis and mild common bile duct dilatation. 2. Findings which may represent medical renal disease in right kidney. Correlate clinically.
[2018-05-12 15:11] VITALS: BP 132/86
== END 2018-05-12 17:10 | disposition home or self-care (01) ==
LOC: ED 11:33
DX: K80.80 Other cholelithiasis without obstruction (principal); E87.6 Hypokalemia; I10 Essential (primary) hypertension; I25.2 Old myocardial infarction; Z86.73 Personal history of transient ischemic attack (TIA), and cerebral infarction without residual deficits; G35 Multiple sclerosis; F17.200 Nicotine dependence, unspecified, uncomplicated
CPT/HCPCS: 36415; 76705; 80048; 80074; 81001; 83690; 85025; 96361; 96374; 99284; J2405; J7030

== ENCOUNTER 2019-08-21 10:49 | Emergency (ER) | payer MEDICARE ==
[2019-08-21 11:21] VITALS: BP 130/90
--- NOTE | 2019-08-21 11:22 | Event Note ---
ED Screening Note ED Screening Note: saw PCP yesterday he told her she was constipated she has BM daily and still having R side pain [facility] lives in senior living on brittny and norvasc daily This initial assessment/diagnostic orders/clinical plan/treatment(s) is/are subject to change based on patients health status, clinical progression and re- assessment by fellow clinical providers in the ED. Further treatment and workup at subsequent clinical providers discretion. Patient/guardian urged not to elope from the ED as their condition may be serious if not clinically assessed and managed. Initial orders include: kub basic labs to ro acute abd process u/a ro uti
[2019-08-21 13:21] LABS: Basophils # (Auto) 0.1 K/mm3 (0.0-0.1); Basophils % (Auto) 1.9 % (0.0-1.8); Eosinophils # (Auto) 0.1 K/mm3 (0.0-0.4); Eosinophils % (Auto) 1.9 % (0.0-4.3); Hematocrit 37.3 % (30.3-42.9); Hemoglobin 13.1 gm/dl (10.1-14.3); Lymphocytes # (Auto) 1.2 K/mm3 (1.2-5.4); Lymphocytes % (Auto) 22.5 % (13.4-35.0); Mean Corpuscular HGB Conc 35 % (30-34); Mean Corpuscular Volume 94 fl (79-97); Monocytes # (Auto) 0.5 K/mm3 (0.0-0.8); Monocytes % (Auto) 8.9 % (0.0-7.3); Platelet Count 203 K/mm3 (140-440); Red Blood Count 3.98 M/mm3 (3.65-5.03); Red Cell Distribution Width 14.5 % (13.2-15.2)
--- NOTE | 2019-08-21 13:27 | XRay Report ---
ABDOMEN 3 VIEW(S) INDICATION: Unspecified abdominal pain. COMPARISON: None available. FINDINGS: Bowel gas pattern: The colon contains a large amount of stool. No dilated bowel loops are seen. Free air: None seen. Stones: None seen. Chest: No acute findings. Additional Findings: No additional significant findings. IMPRESSION: 1. No acute findings. 2. Findings suggestive of constipation. Signer Name: Dilshad Gonzalez MD Signed: 08/21/2019 1:23 PM Workstation Name: [id number]
[2019-08-21 13:41] LABS: Alanine Aminotransferase 13 units/L (7-56); Albumin 4.4 g/dL (3.9-5); BUN/Creatinine Ratio 16; Blood Urea Nitrogen 21 mg/dL (7-17); Hemolysis Index 2
--- NOTE | 2019-08-21 13:56 | Emergency Department Report ---
ED Abdominal Pain HPI - General Chief Complaint: Abdominal Pain Stated Complaint: ABD PAIN Time Seen by Provider: 08/21/19 11:21 Source: patient, EMS Mode of arrival: Stretcher Limitations: Physical Limitation - History of Present Illness Initial Comments: 59 YO AA FEMALE COMES TO ER WITH ABD PAIN; WORSE ON R SIDE. WENT TO PCP YESTERDAY AND TOLD CONSTIPATED BUT THE PCP GAVE HER NOTHING. VSS SHE IS NOT VOMITING NO FEVER LIVES WITH [facility] MD Complaint: abdominal pain -: Gradual, days(s) Location: diffuse Quality: cramping Associated Symptoms: denies other symptoms - Related Data Home Medications Medication Instructions Recorded Confirmed Last Taken Alendronate Sodium [Fosamax] 70 mg PO QWEEK 05/06/18 05/06/18 04/30/18 [place]-3 Fatty Acids/Fish Oil [Fish 1,000 mg PO DAILY 05/06/18 05/06/18 05/05/18 Oil] Previous Rx's Medication Instructions Recorded Last Taken Type Aspirin EC [Halfprin EC] 81 mg PO QDAY #30 tablet 05/09/18 Unknown Rx AtorvaSTATin [Lipitor] 40 mg PO QHS #30 tablet 05/09/18 Unknown Rx Divalproex ER [Depakote ER] 250 mg PO BID #60 tablet 05/09/18 Unknown Rx Famotidine [Pepcid] 20 mg PO BID #30 tablet 05/09/18 Unknown Rx Gabapentin 300 mg PO QPM #30 capsule 05/09/18 Unknown Rx Lisinopril/Hydrochlorothiazide 20 - 25 mg PO DAILY #30 tablet 05/09/18 Unknown Rx [Zestoretic 10-12.5 mg Tablet] amLODIPine 10 mg PO QDAY #30 tablet 05/09/18 Unknown Rx carvediloL [Coreg] 12.5 mg PO BID #60 tablet 05/09/18 Unknown Rx hydroCHLOROthiazide [HCTZ] 25 mg PO QDAY #30 tablet 05/09/18 Unknown Rx Mineral Oil [Fleet Mineral Oil] 133 ml [place] ONCE PRN #2 bottle 08/21/19 Unknown Rx Sennosides/Docusate Sodium [[place] 1 each PO BID #60 tablet 08/21/19 Unknown Rx Plus Tablet] bisacodyL [Dulcolax suppos] 10 mg [place] QDAY PRN #2 supp.rect 08/21/19 Unknown Rx Allergies Allergy/AdvReac Type Severity Reaction Status Date / Time No Known Allergies Allergy Verified 08/21/19 11:21 ED Review of Systems ROS: Stated complaint: ABD PAIN Other details as noted in HPI Comment: All other systems reviewed and negative ED Past Medical Hx - Past Medical History Previous Medical History?: Yes Hx Hypertension: Yes Hx CVA: Yes Hx Heart Attack/AMI: Yes Additional medical history: MS diagnosed 10 years ago. - Surgical History Past Surgical History?: Yes - Family History Family history: no significant - Social History Smoking Status: Never Smoker Substance Use Type: None - Medications Home Medications: Home Medications Medication Instructions Recorded Confirmed Last Taken Type Alendronate Sodium [Fosamax] 70 mg PO QWEEK 05/06/18 05/06/18 04/30/18 History [place]-3 Fatty Acids/Fish Oil [Fish 1,000 mg PO DAILY 05/06/18 05/06/18 05/05/18 History Oil] Aspirin EC [Halfprin EC] 81 mg PO QDAY #30 tablet 05/09/18 Unknown Rx AtorvaSTATin [Lipitor] 40 mg PO QHS #30 tablet 05/09/18 Unknown Rx Divalproex ER [Depakote ER] 250 mg PO BID #60 tablet 05/09/18 Unknown Rx Famotidine [Pepcid] 20 mg PO BID #30 tablet 05/09/18 Unknown Rx Gabapentin 300 mg PO QPM #30 capsule 05/09/18 Unknown Rx Lisinopril/Hydrochlorothiazide 20 - 25 mg PO DAILY #30 tablet 05/09/18 Unknown Rx [Zestoretic 10-12.5 mg Tablet] amLODIPine 10 mg PO QDAY #30 tablet 05/09/18 Unknown Rx carvediloL [Coreg] 12.5 mg PO BID #60 tablet 05/09/18 Unknown Rx hydroCHLOROthiazide [HCTZ] 25 mg PO QDAY #30 tablet 05/09/18 Unknown Rx Mineral Oil [Fleet Mineral Oil] 133 ml [place] ONCE PRN #2 bottle 08/21/19 Unknown Rx Sennosides/Docusate Sodium [[place]enna 1 each PO BID #60 tablet 08/21/19 Unknown Rx Plus Tablet] bisacodyL [Dulcolax suppos] 10 mg [place] QDAY PRN #2 supp.rect 08/21/19 Unknown Rx ED Physical Exam - General Limitations: Physical Limitation General appearance: alert, in no apparent distress - Head Head exam: Present: atraumatic, normocephalic - Eye Eye exam: Present: normal appearance - ENT ENT exam: Present: mucous membranes moist - Neck Neck exam: Present: normal inspection - Respiratory Respiratory exam: Present: normal lung sounds bilaterally. Absent: respiratory distress - Cardiovascular Cardiovascular Exam: Present: regular rate, normal rhythm. Absent: systolic murmur, diastolic murmur, rubs, gallop - GI/Abdominal GI/Abdominal exam: Present: soft, normal bowel sounds - Rectal Rectal exam: Present: other (SMALL STOOL THIS AM) - Extremities Exam Extremities exam: Present: normal inspection - Back Exam Back exam: Present: normal inspection - Neurological Exam Neurological exam: Present: alert, oriented X3 - Psychiatric Psychiatric exam: Present: normal affect, normal mood - Skin Skin exam: Present: warm, dry, intact, normal color. Absent: rash ED Course Vital Signs 08/21/19 11:20 Temperature 98.6 F Pulse Rate 73 Respiratory 20 Rate Blood Pressure 130/90 O2 Sat by Pulse 97 Oximetry ED Medical Decision Making - Lab Data Result diagrams: 08/21/19 12:37 08/21/19 12:37 - Radiology Data Radiology results: report reviewed, image reviewed - Medical Decision Making Labs 08/21/19 08/21/19 08/21/19 12:37 12:37 12:37 WBC 5.2 RBC 3.98 Hgb 13.1 Hct 37.3 MCV 94 MCH 33 H MCHC 35 H RDW 14.5 Plt Count 203 Lymph % (Auto) 22.5 [place] % (Auto) 8.9 H Eos % (Auto) 1.9 Baso % (Auto) 1.9 H Lymph # 1.2 [place] # 0.5 Eos # 0.1 Baso # 0.1 Seg Neutrophils % 64.8 Seg Neutrophils # 3.4 Sodium 142 Potassium 3.6 Chloride 101.3 Carbon Dioxide 29 Anion Gap 15 BUN 21 H Creatinine 1.3 H Estimated GFR 51 BUN/Creatinine Ratio 16 Glucose 85 Calcium 10.0 Total Bilirubin 0.50 AST 16 ALT 13 Alkaline Phosphatase 134 H Total Protein 7.5 Albumin 4.4 Albumin/Globulin Ratio 1.4 Lipase 29 Vital Signs 08/21/19 11:20 Temperature 98.6 F Pulse Rate 73 Respiratory 20 Rate Blood Pressure 130/90 O2 Sat by Pulse 97 Oximetry LABS NOTED XRAY NOTED WBC NORMAL NO FEVER TAKING PO NAD ABD EXAM WITHOUT TENDERNESS ON EXAM SAW PCP YESTERDAY WHO TOLD HER SHE WAS CONSTIPATED - PCP GAVE HER NOTHING FOR CONSTIPATION DISCUSSED WITH PT AND SHE VERBALIZES UNDERSTANDING WRITTEN INSTRUCTIONS GIVEN FOR [facility] - Differential Diagnosis RO ACUTE ABD/CONSTIPATION/VIRAL ILLNESS Critical care attestation.: If time is entered above; I have spent that time in minutes in the direct care of this critically ill patient, excluding procedure time. ED Disposition Clinical Impression: Constipation Disposition: DC-01 TO HOME OR SELFCARE Is pt being admited?: No Does the pt Need Aspirin: No Condition: Stable Instructions: Constipation (ED) Additional Instructions: meds as ordered today avoid narcotics or other meds that may constipate you follow up with pcp in 48 hours ALL LABS NORMAL TODAY. Prescriptions: bisacodyL [Dulcolax suppos] 10 mg [place] QDAY PRN #2 supp.rect PRN Reason: Constipation Mineral Oil [Fleet Mineral Oil] 133 ml [place] ONCE PRN #2 bottle PRN Reason: Constipation Sennosides/Docusate Sodium [Senna Plus Tablet] 1 each PO BID #60 tablet Referrals: LEXIS COELHO MD [Staff Physician] - 3-5 Days Time of Disposition: 13:58
[2019-08-21 13:59] LABS: Bilirubin,Direct < 0.2 mg/dL (0-0.2)
== END 2019-08-21 14:25 | disposition home or self-care (01) ==
LOC: ED 10:49
DX: K59.00 Constipation, unspecified (principal); I10 Essential (primary) hypertension; I21.9 Acute myocardial infarction, unspecified; Z86.73 Personal history of transient ischemic attack (TIA), and cerebral infarction without residual deficits; Z79.899 Other long term (current) drug therapy
CPT/HCPCS: 36415; 74022; 80048; 80076; 83690; 85025